=== PATIENT | male | born 1970 | race Caucasian/White ===

== ENCOUNTER → 2021-12-21 15:02 | Outpatient (CLI) | payer BC, SELFPAY ==
[2021-12-21 19:30] LABS: Basophils # 0.1 K/mm3 (0-0.2); Basophils % 0.9 % (0.1-2.0); Eosinophils # 0.1 K/mm3 (0.0-0.4); Eosinophils % 1.3 % (0.1-12.0); Hematocrit 42.8 % (42.0-52.0); Hemoglobin 14.7 g/dL (14.1-18.0); Lymphocytes # 2.9 K/mm3 (0.7-4.5); Lymphocytes % 34.7 % (10-50); Mean Corpuscular HGB Conc 34.3 g/dL (31.8-35.4); Mean Corpuscular Hemoglobin 29.9 pg (27.0-31.2); Mean Corpuscular Volume 87.2 fl (80-94); Mean Platelet Volume 9.4 fl (7.4-10.4); Monocytes # 0.7 K/mm3 (0.1-1.0); Monocytes % 8.3 % (1.7-9.3); Neutrophils # 4.6 K/mm3 (1.8-7.8); Neutrophils % 54.7 % (37.0-80.0); Platelet Count 316 K/mm3 (142-424); Red Blood Count 4.91 M/mm3 (4.60-6.20); Red Cell Distribution Width 13.4 % (11.5-17.5); White Blood Count 8.4 K/mm3 (4.8-10.8)
[2021-12-21 19:40] LABS: Alanine Aminotransferase 38 U/L (12-78); Albumin Level 4.4 g/dl (3.5-5.0); Albumin/Globulin Ratio 1.5 (1.1-1.8); Alkaline Phosphatase 86 U/L (38-126); Anion Gap 13.4 mEq/L (5-15); Aspartate Amino Transferase 32 U/L (17-59); Bilirubin,Total 0.5 mg/dl (0.2-1.3); Blood Urea Nitrogen 13 mg/dl (9-20); Calcium 8.9 mg/dl (8.4-10.2); Carbon Dioxide 27 mmol/L (22.0-30.0); Chloride 101 mmol/L (98-107); Chol/HDL Ratio 6.8 (1-3.5); Cholesterol 238 mg/dl (140-200); Estimated Glomerular Filt Rate 78 ml/min (>60); GFR (African American) 95 ML/MIN (>60); Glucose 86 mg/dl (74-100); HDL Cholesterol 35 mg/dl (40-60); Potassium 4.4 mmoL/L (3.5-5.1); Sodium 137 mmol/L (136-145); Total Protein,Serum 7.4 g/dl (6.3-8.2); Triglycerides 200 mg/dl (30-150); VLDL Cholesterol 40 mg/dL (0-40)
[2021-12-21 19:52] LABS: Direct LDL Cholesterol 128.01 mg/dL (100-129)
[2021-12-21 19:58] LABS: 25-OH Vitamin D, Total 18.7 ng/mL (30-100)
[2021-12-21 20:11] LABS: Prostate Specific Ag Screen 0.5 ng/ml (0.0-4.0); Thyroid Stimulating Hormone 0.94 uIU/mL (0.465-4.68)
== END ==
PROVIDERS: Visit Provider Family Medicine
DX: I10 Essential (primary) hypertension (principal); E55.9 Vitamin D deficiency, unspecified; Z12.5 Encounter for screening for malignant neoplasm of prostate
CPT/HCPCS: 80053; 80061; 82306; 84443; 85025; G0103

== ENCOUNTER 2024-12-27 10:52 | Outpatient (CLI) | payer BC, SELFPAY ==
[2024-12-27 17:41] LABS: Basophils # 0.1 K/mm3 (0-0.2); Basophils % 0.6 % (0.1-2.0); Eosinophils # 0.2 K/mm3 (0.0-0.4); Eosinophils % 1.8 % (0.1-12.0); Hematocrit 42.6 % (42.0-52.0); Hemoglobin 14.7 g/dL (14.1-18.0); Lymphocytes # 3.2 K/mm3 (0.7-4.5); Lymphocytes % 30.4 % (10-50); Mean Corpuscular HGB Conc 34.5 g/dL (31.8-35.4); Mean Corpuscular Hemoglobin 28.9 pg (27.0-31.2); Mean Corpuscular Volume 83.9 fl (80-94); Mean Platelet Volume 11.5 fl (7.4-10.4); Monocytes % 9.9 % (1.7-9.3); Neutrophils # 5.9 K/mm3 (1.8-7.8); Neutrophils % 56.7 % (37.0-80.0); Nucleated Red Blood Cells # 0 10^3/uL; Nucleated Red Blood Cells % 0 %; Platelet Count 279 K/mm3 (142-424); Red Blood Count 5.08 M/mm3 (4.60-6.20); Red Cell Distribution Width 12.5 % (11.5-17.5); Red Cell Distribution Width-SD 37.5 fL; White Blood Count 10.5 K/mm3 (4.8-10.8)
[2024-12-27 18:44] LABS: Hemoglobin A1C 5.6 % (4.0-6.0)
[2024-12-27 18:58] LABS: Alanine Aminotransferase 70 U/L (12-78); Albumin Level 4.3 g/dl (3.5-5.0); Albumin/Globulin Ratio 1.2 (1.1-1.8); Alkaline Phosphatase 86 U/L (38-126); Anion Gap 14.7 mEq/L (5-15); Aspartate Amino Transferase 63 U/L (17-59); Bilirubin,Total 0.8 mg/dl (0.2-1.3); Blood Urea Nitrogen 10 mg/dl (9-20); Carbon Dioxide 27 mmol/L (22.0-30.0); Chloride 99 mmol/L (98-107); Chol/HDL Ratio 6.6 (1-3.5); Cholesterol 230 mg/dl (140-200); Estimated Glomerular Filt Rate 100 ml/min (>60); GFR (African American) 121 ML/MIN (>60); Globulin 3.7 g/dL (1.3-3.2); Glucose 115 mg/dl (74-100); HDL Cholesterol 35 mg/dl (40-60); Potassium 3.7 mmoL/L (3.5-5.1); Sodium 137 mmol/L (136-145); Triglycerides 294 mg/dl (30-150); VLDL Cholesterol 59 mg/dL (0-40)
[2024-12-27 19:09] LABS: Direct LDL Cholesterol 119.92 mg/dL (100-129)
[2024-12-27 19:31] LABS: Prostate Specific Ag Screen 0.5 ng/ml (0.0-4.0); Thyroid Stimulating Hormone 0.66 uIU/mL (0.465-4.68)
--- OUTSIDE RECORDS SUMMARY | 2024-12-30 10:55 | XMS_ITS | Data Portability ---
Author Organization [facility] & [place] [facility] ADMIN Address [address] [place] [address] Assessment No assessment recorded. Plan of Treatment Reminders Order Date Submit Date Provider Last Modified By Organization Details Last Modified Time Details Appointments None recorded. Lab None recorded. Referral None recorded. Procedures None recorded. Surgeries None recorded. Imaging None recorded. Medication Orders ciprofloxac in 0.3 % eye drops 2023 024 [facility] [address] [place], [place], [id number], 4 17:57:44 dexamethaso ne sodium phosphate 0.1 % eye drops 2023 024 [facility], [address] [place] [address] , [place], [place], [id number], 4 17:57:45 Patient TargetsNo targets recorded. Patient InstructionsNo instructions recorded. Reason for Referral None Reported. Results Created Date Observation Date Name Description Value Unit Range Abnormal Flag Note LastModifiedBy Organization Detail LastModifiedTime 08/31/2008/31/2023 GLUCO SE POINT OF CARE note See Note Order ing Provi cara: Kamar Hazel Bobby DO Not Available [address] [place], [address], 08/31/2023 07:35:10 08/31/20 23 08/31/2023 GLUCO SE POINT OF CARE glucose point of care 108 mg/dL 70-99 high Not Available [address] [place], [address], 08/31/2023 07:35:10 08/31/20 23 08/31/2023 GLUCO SE POINT OF CARE performing lab see note [facility] [address] [place] [address] Not Available [facility] [address] [place], [address], 08/31/2023 07:35:10 08/08/20 23 08/08/2023 elect romyo gram + nerve condu ction study No observ ation record ed. [email or web address] Not Available 2022 14:57:33 Result Notes None recorded. Problems Name Problem SNOMED Code Status Onset Date Resolution Date Notes Provider Name and Address Organization Details Recorded Time Cirrhosis of liver Active 2021 blank bishopemani jane, [place] - [facility] - [place] & [place] 2 12:40:42 Pyrexia of unknown origin 4946553 Active 2021 blank ednaemani jane, [place] - [facility] - [place] & [place] 2 12:43:33 Acute otitis externa 15902360 Active 2023 TAISHA Bonner [facility], [place], [address], [place] - [facility] - [place] & [place] 4 14:22:03 Acute otitis externa 85156971 Active 2023 TAISHA Bonner [address] [facility], [place], [address], [place] - [facility] - [place] & [place] 4 14:22:17 Otalgia of right ear 4868881497 Active 2023 TAISHA Bonner [address] [facility], [place], [address], [place] - [facility] - [place] & [place] 4 15:55:49 Sensorineural hearing loss of bilateral ears 643031569 Active 2023 TASIHA Bonner [address] [facility], [place], [address], [facility] & [place] 15:56:05 Problem Notes None recorded. Procedures Surgical History Date Name Laterality Status Provider Name and Address Organization Details Recorded Time 10/04/19 24 Binocular Microscopic Exam completed Florencia TAISHA Holley [address] [facility],[address], [place], [address], [facility] - [facility] - [place] & [place] 10/04/2023 15:55:24 09/18/19 22 Cholecystectomy completed [facility] - [facility] & [place] 07/24/2023 10:32:44 09/18/19 22 Colonoscopy completed [facility] - [facility] & [place] 07/24/2023 10:32:44 Imaging Results Imaging Date Name Status LastModified by Organization Details LastModified Time 08/08/2023 electromyogram + nerve conduction study completed Information not available 08/08/2023 14:57:33 Procedure Notes None recorded. Medical Equipment None Reported. Allergies No known drug allergies Medications Name Sig Start Date Stop Date Status Note LastModified by Organization Details LastModified Time losartan 50 mg tablet TAKE ONE TABLET BY MOUTH DAILY 07/24 completed Not Available Not Available Not Available hydrocodone 5 mg-acetamino phen 325 mg tablet TAKE ONE TABLET BY MOUTH EVERY 4 HOURS NEEDED FOR PAIN active Not Available Not Available No t Available Claritin 10 mg tablet Take 1 tablet every day by oral route. active Not Available Not Available No t Available dexamethason e sodium phosphate 0.1 % eye drops Instill THREE drops TO THE right ear twice daily FOR 10 DAYS active Not Available Not Available No t Available losartan 100 mg-hydrochlo rothiazide 25 mg tablet TAKE ONE TABLET BY MOUTH DAILY active Not Available Not Available No t Available ciprofloxaci n 0.3 % eye drops Instill THREE drops TO THE right ear twice daily FOR 10 DAYS active Not Available Not Available No t Available losartan 100 mg-hydrochlo rothiazide 12.5 mg tablet TAKE ONE TABLET BY MOUTH DAILY 07/24 completed Not Available Not Available Not Available Claritin 07/24 completed Not Available Not Available Not Available nebivolol 10 mg tablet take ONE tablet by MOUTH ONCE daily 07/24 completed Not Available Not Available Not Available Prilosec 10 mg oral suspension,d elayed release Take 1 packet every day by oral route. active Not Available Not Available No t Available Suprep Bowel Prep Kit 17.5 gram-3.13 gram-1.6 gram oral solution 07/24 completed Not Available Not Available Not Available Vitals Date Recorded Body height Body mass index (BMI) Body weight Heart rate Systolic blood pressure Diastolic blood pressure Provider Name and Address Organization Details Last Updated DateTime 4 182.88 cm 46.8 kg/m2 500112. 37 g 86 /min 158 mm[Hg] 91 mm[Hg] Gage Valentine [facility] & [place] 4 14:05:23 Social History Question Answer Notes LastModified by Organizat ion Details LastModified Time Do You Have An Advance Directive? No Information not available 07/24/2023 What Is Your Level Of Alcohol Consumption? None Information not available 07/24/2023 Are You Blind Or Do You Have Difficulty Seeing? No Information not available 07/24/2023 What Was The Date Of Your Most Recent Tobacco Screening? 07/24/2023 Information not available 07/24/2023 Are You Passively Exposed To Smoke? No Information not available 07/24/2023 Do You Or Have You Ever Used Smokeless Tobacco? Current Snuff User Information not available 07/24/2023 Sex: Unknown Functional Status Question Answer Note LastModified by Organization D etails LastModified Time What is your exercise level? Moderate Information not available 07/24/2023 Mental Status None recorded. Family History Nothing Reported. Medical History Condition Response Gout Y Hypertension Y GI Problems Y Ear or Hearing Problems Y Past Encounters Encounter ID Performer Location Encounter Start Date Encounter Closed Date Diagnosis/Indication Diagnosis SNOMED-CT Code Diagnosis ICD10 Code Diagnosis Note [id number] DO MARGARITA MANDUJANO [address] [address] 07/24/2023 10:27:53 07/24/2023 11:10:36 Numbness and tingling sensation of skin 3802626553 02 R20.2 Bilateral carpal tunnel syndrome 0094088193 4639931 G56.03 [id number] DO MARGARITA MANDUJANO [facility] [address] [place] [address] 08/14/2023 13:59:45 08/14/2023 14:22:51 Bilateral carpal tunnel syndrome 8274811220 5946114 G56.03 Ulnar nerv e entrapment at elbow 322876318 G56.23 Numbness a nd tingling sensation of skin 0150247544 02 R20.2 [id number] TAISHA Bonner [facility] MARES [address] [place] [address] 10/04/2023 13:58:07 10/04/2023 14:24:05 Acute otitis externa 57081233 H60.501 Advised patient to use drops as prescribed . Wick placed in right eac today under otomicrosc opy and ciprodex drops instilled. Patient tolerated well. Advised patient his wick needs to come out by Monday morning. Continue drop use following wick removal. Follow up in 10 days. Discussed symptoms that should prompt patient to call the office prior to follow up. Otalgia of right ear 433 7186006 H92.01 We will ensure this resolves with resolution of OE. Sensorineu ral hearing loss of bilateral ears 380973025 H90.3 Advised patient to hold off on wearing hearing aid in the right ear until follow up visit. Health Concerns Section Related Observation LastModified by Organization Detai ls LastModified Time None Recorded Concern Status LastModified by Organization Details LastModified Time None Recorded Advance Directives Directive N: Payers Encounter Date Sequence Insurance Name Policy Number Policy Prado Covered Member ID Prado Member ID Guarantor Name 07/24/2023 1 [place] [id number] Virgilio Gonzalez [id number] Virgilio Gonzalez 08/14/2023 1 [place] [id number] Virgilio Gonzalez [id number] Virgilio Gonzalez 10/04/2023 1 [place] [id number] Virgilio Gonzalez [id number] Virgilio Gonzalez Notes Date Note Type Note Provider Name and Address Organization Details Recorded Time 07/24/2023 text/html Pt is here for r t thumb, index and middle fingers numbness and tingling. He reports onset at about one month ago. He has not had an EMG-E3SF KAMAR FUENTES DO [address] [place] [address] Drive,[address], [place], [address], [facility] & [place] 07/24/2023 13:14:40 08/14/2023 text/html EMG [email or web address] bilateral em. 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 2. Moderate to severe sensorimotor axonal and demyelinating neuropathy affecting the left median nerve at or about the wrist. 3. Mild motor primarily demyelinating neuropathies affecting the bilateral ulnar nerves at or about the elbows.E3AP KAMAR FUENTES, [address] [facility],[address], [place], [address], [facility] & [place] 08/15/2023 08:29:40 10/04/2023 text/html Patient is here today for evaluation of right ear pain. He reports the pain started a few days ago. He reports the pain radiates down into his neck. He has been taking ibuprofen for pain control. He denies any issues with the left ear. He reports he has been unable to wear his hearing aid due to the pain. He denies noting any drainage. TAISHA Bonner [address] [place] [address] Drive,[address], [place], [address], [facility] & [place] 10/04/2023 15:58:07
[2024-12-31 12:42] LABS: Testosterone,Total 324 ng/dL (264-916)
== END 2024-12-27 23:59 | disposition home or self-care (01) ==
LOC: LAB.DROPOF 12-30 10:52
PROVIDERS: PCP Family Medicine; Visit Provider Family Medicine
DX: Z12.5 Encounter for screening for malignant neoplasm of prostate (principal); I10 Essential (primary) hypertension; Z79.899 Other long term (current) drug therapy
CPT/HCPCS: 80053; 80061; 83036; 84403; 84443; 85025; G0103

== ENCOUNTER → 2025-01-22 06:59 | Outpatient (CLI) | payer BC, SELFPAY ==
--- OUTSIDE RECORDS SUMMARY | 2025-01-22 07:00 | XMS_ITS | Data Portability ---
Author Organization [facility] & [place] [facility] AD[facility] Address [address] [place] [phone] Assessment No assessment recorded. Plan of Treatment Reminders Order Date Submit Date Provider Last Modified By Organization Details Last Modified Time Details Appointments None recorded. Lab None recorded. Referral None recorded. Procedures None recorded. Surgeries None recorded. Imaging None recorded. Medication Orders ciprofloxac in 0.3 % eye drops 2023 024 [facility] [address] [place], [place], [id number], 4 17:57:44 dexamethaso ne sodium phosphate 0.1 % eye drops 2023 024 [facility], [address] [place] [address] , [place], [place], [id number], 4 17:57:45 Patient TargetsNo targets recorded. Patient InstructionsNo instructions recorded. Reason for Referral None Reported. Results Created Date Observation Date Name Description Value Unit Range Abnormal Flag Note LastModifiedBy Organization Detail LastModifiedTime 08/31/2008/31/2023 GLUCO SE POINT OF CARE note See Note Order ing Provi cara: Kamar Hazel Bobby DO Not Available [address] [place], [address], 08/31/2023 07:35:10 08/31/20 23 08/31/2023 GLUCO SE POINT OF CARE glucose point of care 108 mg/dL 70-99 high Not Available [address] [place], [address], 08/31/2023 07:35:10 08/31/20 23 08/31/2023 GLUCO SE POINT OF CARE performing lab see note [facility] [address] [place] [address] Not Available [facility] [address] [place], [address], 08/31/2023 07:35:10 08/08/20 23 08/08/2023 elect romyo gram + nerve condu ction study No observ ation record ed. [email or web address] Not Available 2022 14:57:33 Result Notes None recorded. Problems Name Problem SNOMED Code Status Onset Date Resolution Date Notes Provider Name and Address Organization Details Recorded Time Cirrhosis of liver Active 2021 blank bishopemani jane, [place] - [facility] - [place] & [place] 2 12:40:42 Pyrexia of unknown origin 4899285 Active 2021 blank ednaemani jane, [place] - [facility] - [place] & [place] 2 12:43:33 Acute otitis externa 55280311 Active 2023 TAISHA Bonner [facility] [employer] [facility],[address], [place], [address], [place] - [facility] - [place] & [place] 4 14:22:03 Acute otitis externa 89302484 Active 2023 TAISHA Bonner [address] [employer] [facility],[address], [place], [address], [place] [facility] - [place] & [place] 4 14:22:17 Otalgia of right ear 8541166653 Active 2023 TAISHA Bonner [address] [employer] [facility],[address], [place], [address], [place] - [facility] - [place] & [place] 4 15:55:49 Sensorineural hearing loss of bilateral ears 307052490 Active 2023 TAISHA Bonner [address] [facility],[address], [place], [address], [facility] & [place] 15:56:05 Problem Notes None recorded. Procedures Surgical History Date Name Laterality Status Provider Name and Address Organization Details Recorded Time 10/04/19 24 Binocular Microscopic Exam completed Florencia TAISHA Holley [address] [facility],[address], [place], [address], [facility] - [facility] - [place] & [place] 10/04/2023 15:55:24 09/18/19 22 Cholecystectomy completed [facility] - [facility] & [place] 07/24/2023 10:32:44 09/18/19 22 Colonoscopy completed [facility] - [facility] & [place] 07/24/2023 10:32:44 Imaging Results Imaging Date Name Status LastModified by Organization Details LastModified Time 08/08/2023 electromyogram + nerve conduction study completed [email or web address] Information not available 08/08/2023 14:57:33 Procedure Notes [...] Updated DateTime 4 182.88 cm 46.8 kg/m2 083344. 37 g 86 /min 158 mm[Hg] 91 mm[Hg] [facility]age [facility] & [place] 4 14:05:23 Social History Question Answer Notes [...] SNOMED-CT Code Diagnosis ICD10 Code Diagnosis Note [id number] DO MARGARITA MANDUJANO [address] [address] 07/24/2023 10:27:53 07/24/2023 11:10:36 Numbness and tingling sensation of skin 6100368909 02 R20.2 Bilateral carpal tunnel syndrome 9577008171 2467824 G56.03 [id number] DO MARGARITA MANDUJANO [facility] [address] [place] [address] 08/14/2023 13:59:45 08/14/2023 14:22:51 Bilateral carpal tunnel syndrome 2634153254 0543837 G56.03 Ulnar nerv e entrapment at elbow 172345985 G56.23 Numbness a nd tingling sensation of skin 5718513289 02 R20.2 [id number] TAISHA Bonner [facility] [place] [phone] 10/04/2023 13:58:07 10/04/2023 14:24:05 Acute otitis externa 40392738 H60.501 Advised patient to use drops as [...] to follow up. Otalgia of right ear 158 1924554 H92.01 We will ensure this resolves with resolution of OE. Sensorineu ral hearing loss of bilateral ears 982800919 H90.3 Advised patient to hold off on wearing hearing aid in the right ear until follow up visit. Health Concerns Section Related Observation LastModified by Organization Detai ls LastModified Time None Recorded Concern Status LastModified by Organization Details LastModified Time None Recorded Advance Directives Directive N: Payers Insurance Date Sequence Insurance Name Policy Number Policy Prado Covered Member ID Prado Member ID Guarantor Name 04/06/2024 1 [place] [place] [id number] Virgilio Gonzalez [id number] Virgilio Gonzalez 07/24/2023 1 [place] [employer] BLUE ACCESS ([place]O) [id number] Blank Gonzalez [id number] Virgilio Gonzalez Notes Date Note Type Note Provider Name and Address Organization Details Recorded Time 07/24/2023 text/html Pt is here for r t thumb, index and middle fingers numbness and tingling. He reports onset at about one month ago. He has not had an EMG-E3SF KAMAR FUENTES DO [address] [place] [address],[address], [place], [address], [facility] - [facility] & [place] 07/24/2023 13:14:40 08/14/2023 text/html EMG [email or web address] bilateral em. 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 2. Moderate to severe sensorimotor axonal and demyelinating neuropathy affecting the left median nerve at or about the wrist. 3. Mild motor primarily demyelinating neuropathies affecting the bilateral ulnar nerves at or about the elbows.E3AP KAMAR FUENTES DO [address] [place] [address],[address], [place], [address], [facility] & [place] 08/15/2023 08:29:40 10/04/2023 text/html Patient is here [...] He denies noting any drainage. TAISHA Bonner [address] [place] [address],[address], [place], [address], [facility] - [facility]NT [facility] & [place] 10/04/2023 15:58:07
== END ==
LOC: SL 06:59
PROVIDERS: PCP Family Medicine; Visit Provider Family Medicine
DX: R06.83 Snoring (principal); R53.83 Other fatigue; E66.01 Morbid (severe) obesity due to excess calories; Z68.42 Body mass index [BMI] 45.0-49.9, adult
CPT/HCPCS: G0399

== ENCOUNTER 2025-07-14 16:40 | Outpatient (CLI) | payer BC, SELFPAY ==
[2025-07-14 20:42] LABS: Hematocrit 41.9 % (42.0-52.0); Hemoglobin 14.6 g/dL (14.1-18.0); Immature Granulocytes % 0.7 %; Mean Corpuscular HGB Conc 34.8 g/dL (31.8-35.4); Mean Corpuscular Hemoglobin 29.6 pg (27.0-31.2); Mean Corpuscular Volume 85.0 fl (80-94); Nucleated Red Blood Cells % 0 %; Platelet Count 269 K/mm3 (142-424); Red Blood Count 4.93 M/mm3 (4.60-6.20); Red Cell Distribution Width-SD 37.7 fL; White Blood Count 13.4 K/mm3 (4.8-10.8)
[2025-07-15 04:43] LABS: Alanine Aminotransferase 64 U/L (12-78); Albumin Level 3.7 g/dl (3.5-5.0); Albumin/Globulin Ratio 1.0 (1.1-1.8); Alkaline Phosphatase 97 U/L (38-126); Anion Gap 15.8 mEq/L (5-15); Aspartate Amino Transferase 47 U/L (17-59); Bilirubin,Total 0.7 mg/dl (0.2-1.3); Blood Urea Nitrogen 11 mg/dl (9-20); Calcium 9.2 mg/dl (8.4-10.2); Carbon Dioxide 22 mmol/L (22.0-30.0); Chloride 99 mmol/L (98-107); Creatinine,Serum 1.00 mg/dl (0.66-1.25); Estimated Glomerular Filt Rate 77 ml/min (>60); GFR (African American) 93 ML/MIN (>60); Globulin 3.8 g/dL (1.3-3.2); Glucose 118 mg/dl (74-100); Potassium 3.8 mmoL/L (3.5-5.1); Sodium 133 mmol/L (136-145); Total Protein,Serum 7.5 g/dl (6.3-8.2)
[2025-07-15 05:08] LABS: Thyroid Stimulating Hormone 1.30 uIU/mL (0.465-4.68)
[2025-07-15 07:32] LABS: Hepatitis C Ab Qual. W/ RFX NEGATIVE (Negative)
--- OUTSIDE RECORDS SUMMARY | 2025-07-15 13:17 | XMS_ITS | Data Portability ---
Author Organization [place] - [facility] ADMIN Address [address] [place] [address] Care Team Providers Care Coil Placer Name Role Phone GEN BOYCE Primary Care Provider [phone] Assessment No assessment recorded. Plan of Treatment Reminders Order Date Submit Date Provider Last Modified By Organization Details Last Modified Time Details Appointments INJ ONLY 10 2024 08:15A M KAMAR FUENTES, DO Not available Not available Not available Lab None recorded. Referral None recorded. Procedures None recorded. Surgeries None recorded. Imaging XR, knee 2024 025 [email or web address] [facility], [address] [place] [address] , [place], [address], 03/06/2025 06:55:54 Medication Orders triamcino lone acetonide (PF) 40 mg/mL intraocul ar suspensio n 2024 Rebecca Healy [facility] Shi, [address] [place] [address] [place], [id number], 06/25/2025 15:55:24 bupivacai ne HCl 0.5 % (5 mg/mL) injection solution 2024 Rebecca Osullivan, [address] [place] [address] Dr [place], [id number], 06/25/2025 15:55:24 Kenalog 10 mg/mL suspensio n for injection 2024 025 [email or web address] Not available 03/06/2025 06:55:54 bupivacai ne HCl 0.5 % (5 mg/mL) injection solution 2024 025 [email or web address] Not available 03/06/2025 06:55:54 ciproflox acin 0.3 % eye drops [address] [facility], [address] [place] [address] [place], [id number], 10/04/2023 17:57:44 dexametha sone sodium phosphate 0.1 % eye drops 2023 0[facility], [address] [place] [address] [place], [id number], 10/04/2023 17:57:45 Patient TargetsNo targets recorded. Patient InstructionsNo instructions recorded. Reason for Referral None Reported. Results Created Date Observation Date Name Description Value Unit Range Abnormal Flag Note LastModifiedBy Organization Detail LastModifiedTime 08/31/20 23 08/31/2023 GLUCO SE POINT OF CARE note See Note Order ing Provi cara: Kamar Fuentes DO Not Available [address] [place], [address], 08/31/2023 07:35:10 08/31/20 23 08/31/2023 GLUCO SE POINT OF CARE glucose point of care 108 mg/dL 70-99 high Not Available [address] [place], [address], 08/31/2023 07:35:10 08/31/20 23 08/31/2023 GLUCO SE POINT OF CARE performing lab see note [facility] [address] [place] [address] [place] [address] Not Available [address] [place], [address], 08/31/2023 07:35:10 08/08/20 23 08/08/2023 elect romyo gram + nerve condu ction study No observ ation record ed. [email or web address] Not Available 2022 14:57:33 03/05/20 25 XR, knee No observ ation record ed. MARIAH Watson [facility] [address] [facility] , [place], [address], 03/05/2025 14:37:29 06/12/20 25 06/12/2025 MRI, knee, w/o contr ast [facility] Name: VIRGILIO LINDO [address] [employer] Phys: [place] [address] : 1969 Age: 55 Sex: M Acct: [id number] Loc: G.MRI PHONE #: Exam Date: 2024 Status : REG CLI FAX #: Rad# [id number] Unit# [id number] Admit Date: 2024 EXAMS: CPT CODE: [id number] MRI KNEE RIGHT W/O CONT 08450 EXAMIN ATION: MR KNEE WITHOU T IV CONTRA ST RIGHT INDICA TION: POSITI VE MCMURR AY TEST RT KNEE . Medial and latera l right knee pain. Fall Januar y 24. TECHNI QUE: Multip lanar multis equenc e MRI of the right knee. Unless specif ied, no imagin g follow -up is recomm ended for incide ntal findin gs. COMPAR ARTHUR: No prior study was submit rikki for compar arthur. FINDIN GS: Mild joint effusi on. Surfac e irregu larity of the medial patell ar cartil age withou t underl sonia marrow signal change s compat ible with grade II chondr omalac ia. The medial and latera l patell ar retina cula appear intact . The medial and latera l tendon s appear intact . No poplit eal fossa mass. The extens or mechan ism appear s intact . The anteri or and base filler operator ior crucia te ligame nts appear intact . Horizo ntal tear of the base filler operator ior horn of the medial menisc us with tibial articu lar surfac e extent . Extrus ion of the body segmen t of the medial menisc us. Appear ance of interp ositio n of fluid signal betwee n the body of the medial menisc us and the medial collat eral ligame nt, concer alex for menisc ocapsu lar separa tion. No latera l menisc al tear was identi fied. The medial and latera l collat eral ligame nts appear intact . The poplit eus tendon and poplit eofibu lar ligame nt appear intact . The condyl ar cartil ages appear intact . No eviden ce for a marrow replac ing proces s, bone contus ion or fractu re. Nonspe cific subcut aneous edema within the prepat ellar region extend ing into the prepat ellar region may repres ent superf icial soft PAGE 1 Signed Report (FERMIN NUED) [facility] Name: VIRGILIO LINDO [employer] Phys: Dominique Fu[place] [address] : 1969 Age: 55 Sex: M Acct: [id number] Loc: G.MRI PHONE #: Exam Date: 2024 Status : REG CLI FAX #: Rad# [id number] Unit# [id number] Admit Date: 2024 EXAMS: CPT CODE: [id number] MRI KNEE RIGHT W/O CONT 98289 tissue contus ion, cellul itis or bursit is. IMPRES JB: Abnorm al examin ation, with findin gs as above. Electr onical ly signed by: Hannah Grimes DO 2024 01:50 PM EDT RP Workst ation: [id number] Electr onical ly Signed by HANNAH GRIMES DO on 2024 at 1212 Report ed and signed by: Justin GRIMES DO CC: Kamar Fuentes DO; Gen Boyce MD Dictat ed Date/T brodie: 2024 (1212) Techno logist : NANCY ESCUDERO ; GREG Davis Transc ribed Date/T brodie: 2024 (1212) Transc riptio nist: DR.HAL Joseph Signat ure Date/T brodie: 2024 (1212) Printe d Date/T brodie: 2024 (2191) BATCH NO: N/A PAGE 2 Signed Report CC'ed Logic: Orderi ng Provid er: ALFREDO SHEPARD Attend ing Provid er: ALFREDO SHEPARD Referr ing Provid er: ALFREDO SHEPARD Consul ting Provid er: MEREDITH MAHER [email or web address], [address], 06/12/2025 14:40:10 06/25/20 25 XR, knee No observ ation record ed. Not Available 2024 13:22:36 Result Notes Documentation Provider Name and Address Organization Details Recorded Time Mri, Knee, W/o Contrast : [facility] Name: VIRGILIO LINDO [address] [place] [address] Phys: [place] [address] : 1970 Age: 55 Sex: M Acct: [id number] Loc: G.MRI PHONE #: Exam Date: 06/12/2025 Status: REG CLI FAX #: Rad# [id number] Unit# [id number] Admit Date: 06/12/2025 EXAMS: CPT CODE: [id number] MRI KNEE RIGHT W/O CONT 28503 EXAMINATION: MR KNEE WITHOUT IV CONTRAST RIGHT INDICATION: POSITIVE JALEN TEST RT KNEE . Medial and lateral right knee pain. Fall October 11. TECHNIQUE: Multiplanar multisequence MRI of the right knee. Unless specified, no imaging follow-up is recommended for incidental findings. COMPARISON: No prior study was submitted for comparison. FINDINGS: Mild joint effusion. Surface irregularity of the medial patellar cartilage without underlying marrow signal changes compatible with grade II chondromalacia. The medial and lateral patellar retinacula appear intact. The medial and lateral tendons appear intact. No popliteal fossa mass. The extensor mechanism appears intact. The anterior and posterior cruciate ligaments appear intact. Horizontal tear of the posterior horn of the medial meniscus with tibial articular surface extent. Extrusion of the body segment of the medial meniscus. Appearance of interposition of fluid signal between the body of the medial meniscus and the medial collateral ligament, concerning for meniscocapsular separation. No lateral meniscal tear was identified. The medial and lateral collateral ligaments appear intact. The popliteus tendon and popliteofibular ligament appear intact. The condylar cartilages appear intact. No evidence for a marrow replacing process, bone contusion or fracture. Nonspecific subcutaneous edema within the prepatellar region extending into the prepatellar region may represent superficial soft PAGE 1 Signed Report (CONTINUED) [facility] Name: VIRGILIO LINDO [facility] Phys: [place] [address] : 1970 Age: 55 Sex: M Acct: [id number] Loc: SjMRI PHONE #: Exam Date: 06/12/2025 Status: REG CLI FAX #: Rad# [id number] Unit# [id number] Admit Date: 06/12/2025 EXAMS: CPT CODE: [id number] MRI KNEE RIGHT W/O CONT 99193 tissue contusion, cellulitis or bursitis. IMPRESSION: Abnormal examination, with findings as above. Electronically signed by: Hannah Grimes DO 06/12/2025 01:50 PM EDT at 1212 Reported and signed by: HANNAH GRIMES DO CC: Kamar Fuentes DO; Gen Boyce MD Dictated Date/Time: 06/12/2025 (1212) Technologist: NANCY MOY Transcribed Date/Time: 06/12/2025 (1212) Isobutylene Operator Chief: Electronic Signature Date/Time: 06/12/2025 (1212) Printed Date/Time: 06/12/2025 (2225) BATCH NO: N/A PAGE 2 Signed Report CC'ed Logic: Ordering Provider: ALFREDO SHEPARD Attending Provider: ALFREDO SHEPARD Referring Provider: ALFREDO SHEPARD Consulting Provider: MEREDITH Tarango [facility] 06/12/2025 14:40:10 Problems Name Problem SNOMED Code Status Onset Date Resolution Date Notes Provider Name and Address Organization Details Recorded Time Cirrhosis of liver Active 2021 [place], [place] - [facility] - [facility] [place] 2 12:40:42 Pyrexia of unknown origin 4836944 Active 2021 blank [place], [place] - [facility] - [place] & [place] 2 12:43:33 Acute otitis externa 23684579 Active 2023 TAISHA Bonner [address] [place] [address] Drive[address], [place], [address], [place] - [facility] - [facility] & [place] 4 14:22:03 Acute otitis externa 44224362 Active 2023 TAISHA Bonner [address] [place] [address] Drive[address], [place], [address], [place] - [facility] - [facility] & [place] 4 14:22:17 Otalgia of right ear 5485702329 Active 2023 Florencia Holley NETWORK DIRECTOR [address] [place] [address] Drive[address], [place], [address], [place] - [facility] - [facility] & [place] 4 15:55:49 Sensorineural hearing loss of bilateral ears 436458121 Active 2023 TAISHA Bonner [address] [place] [address],[address], [place], [address], [place] - [facility] - [facility] & [place] 4 15:56:05 Problem Notes None recorded. Procedures Surgical History Date Name Laterality Status Provider Name and Address Organization Details Recorded Time 10/04/19 24 Binocular Microscopic Exam completed TAISHA Bonner [address] [place] [address],[address], [place], [address], [place] - [facility] - [facility] & [place] 10/04/2023 15:55:24 09/18/19 22 Cholecystectomy completed Yane Jim [place] - [facility] - [facility] & [place] 07/24/2023 10:32:44 09/18/19 22 Colonoscopy completed Yane Jim [place] - [facility] - [place] & [place] 07/24/2023 10:32:44 Imaging Results None recorded. Procedure Notes None recorded. Medical Equipment None Reported. Allergies No known drug allergies Medications Name Sig Start Date Stop Date Status Note LastModified by Organization Details LastModified Time losartan 50 mg tablet TAKE ONE TABLET BY MOUTH DAILY 07/24 completed Not Available Not Available Not Available hydrocodone 5 mg-acetamin ophen 325 mg tablet TAKE ONE TABLET BY MOUTH EVERY 4 HOURS NEEDED FOR PAIN active Not Available Not Available No t Available Claritin 10 mg tablet Take 1 tablet every day by oral route. active Not Available Not Available No t Available bupivacaine HCl 0.5 % (5 mg/mL) injection solution Take 2 mL by injection route. 2024 active Not Available Not Available Not Avai lable ropinirole 3 mg tablet TAKE ONE TABLET BY MOUTH 1-3 HOURS BEFORE bedtime active Not Available Not Available No t Available dexamethaso ne sodium phosphate 0.1 % eye drops Instill THREE drops TO THE right ear twice daily FOR 10 DAYS active Not Available Not Available No t Available losartan 100 mg-hydrochl orothiazide 25 mg tablet TAKE ONE TABLET BY MOUTH EVERY DAY active Not Available Not Available No t Available ciprofloxac in 0.3 % eye drops Instill THREE drops TO THE right ear twice daily FOR 10 DAYS active Not Available Not Available No t Available Kenalog 10 mg/mL suspension for injection Take 20 mg by injection route. 2024 active Not Available Not Available Not Avai lable amlodipine 10 mg tablet TAKE ONE TABLET BY MOUTH EVERY DAY active Not Available Not Available No t Available albuterol sulfate HFA 90 mcg/actuati on aerosol inhaler inhale 2 puffs BY MOUTH FOUR TIMES DAILY NEEDED FOR shortness of breath OR wheezing active Not Available Not Available No t Available losartan 100 mg-hydrochl orothiazide 12.5 mg tablet TAKE ONE TABLET BY MOUTH DAILY 07/24 completed Not Available Not Available Not Available Claritin 07/24 completed Not Available Not Available Not Available nebivolol 10 mg tablet take ONE tablet by MOUTH ONCE daily 07/24 completed Not Available Not Available Not Available triamcinolo ne acetonide (PF) 40 mg/mL intraocular suspension Take 1 mL by intraocul ar route. 2024 active Not Available Not Available Not Avai lable Prilosec 10 mg oral suspension, delayed release Take 1 packet every day by oral route. active Not Available Not Available No t Available Suprep Bowel Prep Kit 17.5 gram-3.13 gram-1.6 gram oral solution 07/24 completed Not Available Not Available Not Available testosteron e 20.25 mg/1.25 gram per pump act.(1.62 %) transdermal gel APPLY 2 pumps topically DAILY, apply ONE pump AMOUNT over max AREA of each upper arm AND shoulder active Not Available Not Available No t Available Vitals Date Recorded Body height Body mass index (BMI) Body weight Heart rate Systolic And Diastolic Provider Name and Address Organization Details Last Updated DateTime 10/04/2023 182.88 cm 46.8 kg/m2 118301.3 7 g 86 /min 158/91 mm[Hg] Gage Valentine [place] - [facility] & [place] 10/04/2023 14:05:23 Social History Question Answer Notes LastModified by [employer] Details LastModified Time Do You Have An Advance Directive? No Information not available 07/24/2023 Are You Blind Or Do You Have Difficulty Seeing? No Information not available 07/24/2023 What Was The Date Of Your Most Recent Tobacco Screening? 07/24/2023 Information not available 07/24/2023 Are You Passively Exposed To Smoke? No Information not available 07/24/2023 Sex: Unknown Functional Status Question Answer Note LastModified by [employer] Details LastModified Time What is your level of alcohol consumption? None Information not available 07/24/2023 Do you or have you ever used smokeless tobacco? Current snuff user Information not available 07/24/2023 What is your exercise level? Moderate Information not available 07/24/2023 Mental Status None recorded. Family History Nothing Reported. Medical History Condition Response Gout Y Hypertension Y Ear or Hearing Problems Y GI Problems Y Immunizations Vaccine Type Date Status Note Provider Nam e and Address Organization Details Recorded Time influenza, unspecified formulation 4 completed Not Available [facility] 06/25/2025 13:10:26 Influenza, split virus, quadrivalent, preservative 6 completed Not Available [facility] 06/25/2025 13:10:26 COVID-19 vaccine, vector-nr, rS-Ad26, PF, 0.5 mL 1 completed Not Available [facility] 06/25/2025 13:10:26 Influenza, recombinant, quadrivalent, PF 2 completed Not Available [facility] 06/25/2025 13:10:26 Influenza, recombinant, quadrivalent, PF 2 completed Not Available [facility] 06/25/2025 13:10:26 Influenza, split virus, quadrivalent, PF 3 completed Not Available [facility] 06/25/2025 13:10:26 Influenza, split virus, quadrivalent, PF 4 completed Not Available [facility] 06/25/2025 13:10:26 Past Encounters Encounter ID Performer Location Encounter Start Date Encounter Closed Date Diagnosis/Indication Diagnosis SNOMED-CT Code Diagnosis ICD10 Code Diagnosis IMO Codes Diagnosis Note [id number] [facility] [address] 07/24/2023 10:27:53 07/24/2023 11:10:36 Numbness and tingling sensation of skin 0108367078 02 R20.2 Bilateral carpal tunnel syndrome 0015871991 5570216 G56.03 [id number] DO MARGARITA MANDUJANO [address] [address] 08/14/2023 13:59:45 08/14/2023 14:22:51 Bilateral carpal tunnel syndrome 5983830955 4465832 G56.03 Ulnar nerv e entrapment at elbow 282942716 G56.23 Numbness a nd tingling sensation of skin 7985305227 02 R20.2 [id number] TAISHA Bonner [facility] [place] [address] 10/04/2023 13:58:07 10/04/2023 14:24:05 Acute otitis externa 71670388 H60.501 Advised patient to use drops as [...] to follow up. Otalgia of right ear 067 9371292 H92.01 We will ensure this resolves with resolution of OE. Sensorineu ral hearing loss of bilateral ears 604125954 H90.3 Advised patient to hold off on wearing hearing aid in the right ear until follow up visit. [id number] DO MARGARITA MANDUJANO [address] [address] 03/05/2025 14:24:02 03/05/2025 15:23:49 Pain of knee region 9921021769 M25.561 71236456 Pes anseri nus bursitis of right knee 0218462819 258296 M70.51 38850782 [id number] DO MARGARITA MANDUJANO [address] [address] 06/25/2025 13:09:05 06/25/2025 13:36:04 Tear of medial meniscus of knee 258428965 S83.241A 37445621 Arthritis of right knee joint 2753460688 696305 M17.11 451757 Health Concerns Section Related Observation LastModified by Organization Detai ls LastModified Time None Recorded Concern Status LastModified by Organization Details LastModified Time None Recorded Advance Directives Directive N: Payers Insurance Date Sequence Insurance Name Policy Number Policy Prado Covered Member ID Prado Member ID Guarantor Name 07/15/2025 1 [place] [id number] Virgilio Lindo [id number] Virgilio Lindo 07/24/2023 1 [place] [id number] Blank Lindo [id number] Virgilio Lindo Notes Date Note Type Note Provider Name and Address Organization Details Recorded Time 07/24/2023 text/html ROS as noted in the HPI Pt is here for rt thumb, index and middle fingers numbness and tingling. He reports onset at about one month ago. He has not had an [id number] [place]UENTES DO [address] [place] [address] Drive,[address], [place], [address], [facility] & [place] 07/24/2023 13:14:40 08/14/2023 text/html ROS as noted in the HPI EMG [id number] bilateral em. 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 2. Moderate to severe sensorimotor axonal and demyelinating neuropathy affecting the left median nerve at or about the wrist. 3. Mild motor primarily demyelinating neuropathies affecting the bilateral ulnar nerves at or about the elbows.[id number] KAMAR FUENTES DO [address] [place] [address],[address], [place], [address], [facility] & [place] 08/15/2023 08:29:40 10/04/2023 text/html Patient is here [...] He denies noting any drainage. TAISHA Bonner [address] [place] [address],[address], [place], [address], [facility] & [place] 10/04/2023 15:58:07 03/05/2025 text/html ROS as noted in the HPI 55 year old male here today for right knee injury from September 2024, fell onto right knee. He has medial knee pain, really bothers him at night. He cannot walk long distances. He takes ibuprofen as needed. X-rays of right knee taken in office today. KAMAR FUENTES DO [address], [place], [address], [facility] & [place] 03/07/2025 13:08:35 06/25/2025 text/html ROS as noted in the HPI Pt is here for his MRI results-Mild joint effusion.Surface irregularity of the medial patellar cartilage withoutunderlying marrow signal changes compatible with grade IIchondromalacia. The medial and lateral patellar retinacula appearintact.The medial and lateral tendons appear intact. No popliteal fossamass.The extensor mechanism appears intact.The anterior and posterior cruciate ligaments appear intact.Horizontal tear of the posterior horn of the medial meniscus withtibial articular surface extent. Extrusion of the body segment of themedial meniscus. Appearance of interposition of fluid signal betweenthe body of the medial meniscus and the medial collateral ligament,concerning for meniscocapsular separation. No lateral meniscal tearwas identified.The medial and lateral collateral ligaments appear intact.The popliteus tendon and popliteofibular ligament appear intact.The condylar cartilages appear intact.No evidence for a marrow replacing process, bone contusion orfracture.Nonspecific subcutaneous edema within the prepatellar regionextending into the prepatellar region may represent superficial soft KAMARSusan FUENTES DO [address] [facility],[address], [place], [address], [place] - [facility] - [place] & [place] 06/27/2025 07:42:01
--- OUTSIDE RECORDS SUMMARY | 2025-07-15 13:17 | XMS_ITS | Referral Summary ---
Author Organization [employer] ([place], [place], [place], [place]) Address [address] [place] [address] Care Team Providers Care Criminal Attorney Name Role Phone Gen Boyce MD Primary Care Provider Allergies No known active allergies Medications losartan-hydroc hlorothiazide (HYZAAR) 100-12.5 mg per tablet Take 1 tablet by mouth daily. Active omeprazole (PriLOSEC) 20 MG capsule Take 20 mg by mouth nightly. Active albuterol (PROVENTIL) 2.5 mg /3 mL (0.083 %) nebulizer solution Take 2.5 mg by nebulization every 6 (six) hours as needed for Shortness of Breath . Active cetirizine (ZyrTEC) 10 MG tablet Take 10 mg by mouth nightly. Active Active Problems Problem Noted Date Diagnosed Date Hypertension 07/14/2022 Colon cancer 07/12/2022 Social History Tobacco Use Types Packs/Day Years Used Date Smoking Tobacco: Former Smokeless Tobacco: Current Alcohol Use Standard Drinks/Week Comments Not Currently 0 (1 standard drink = 0.6 oz pur e alcohol) Food Insecurity Answer Date Recorded Food run out past 12 months Not on file 09/19 Food did not last past 12 months Not on file 10/07/2023 Employment Answer Date Recorded Help finding and keeping a job Not on file 0 10/07/2023 Family and Community Support Answer Henok e Recorded Help with Day to Day Activities Not on file 10/07/2023 Feeling Lonely or Isolated Not on file 10/07 Educational Attainment Answer Date Vijay rded Speak language other than Cymro at home Not on file 10/07/2023 Want help with school or training Not on file 10/07/2023 Substance Use Answer Date Recorded Used prescription meds for non-medical reasons N ot on file 10/07/2023 Used illegal drugs past 12 months Not on file 10/07/2023 Sex and Gender Information Value Date Recorded Sex Assigned at Not on file Legal Sex Male 9:18 AM CDT Gender Identity Not on file Sexual Orientation Not on file Last Filed Vital Signs Vital Sign Reading Time Taken Comments Blood Pressure 153/83 07/14/2022 3:10 PM EDT Pulse 96 07/14/2022 3:10 PM EDT Temperature 37.2 C (98.96 F) 07/14/2022 3:00 PM EDT Respiratory Rate 16 07/14/2022 3:10 PM EDT Oxygen Saturation 96% 07/14/2022 3:10 PM EDT Inhaled Oxygen Concentration - - Weight 154.2 kg (340 lb) 07/12/2022 10:14 AM EDT Height 182.9 cm (6') 07/12/2022 10:14 AM EDT Body Mass Index 46.11 07/12/2022 10:14 AM EDT Plan of Treatment Not on file Insurance BLUE CROSS/BLUE SHIELD Care Teams Criminal Attorney Relationship Specialty Start Date End Date Gen Boyce MD [address] [place] [address] PCP - General Family Medicine 06/18/22
--- OUTSIDE RECORDS SUMMARY | 2025-07-15 13:17 | XMS_ITS | Patient Health Record ---
[facility] Organization [facility] Address [address] [place] [phone] Support Name Relationship Address Phone Virgilio Gonzalez Guarantor Unknown [phone] Reason For Referral No Information Medications Medication SIG (Take, Route, Frequency, Duration) Notes Start Date End Date Status Allopurinol 100 MG orally daily Active Pravastatin Sodium 20 MG orally daily Active ZyrTEC Allergy 10 MG orally daily Active Plan Of Treatment No Information Insurance Providers Payer Name Payer Address Payer Phone Subscriber Number Group Number Insured Name Patient Relationship to Insured Coverage Start Date Coverage End Date [facility] [address] [place] [address] [id number] Virgilio Gonzalez Self - patient is the insured Medical (General) History Medical History History ICD Code hyperlipidemia Gout allergies
--- OUTSIDE RECORDS SUMMARY | 2025-07-15 13:17 | XMS_ITS | Patient Health Record ---
Author Organization [facility] Address [address], [place] [id number] Support Name Relationship Address Phone Virgilio Gonzalez Guarantor Unknown [phone] Reason For Referral No Information Plan Of Treatment No Information
--- OUTSIDE RECORDS SUMMARY | 2025-07-15 13:17 | XMS_ITS | Clinical Summary ---
Author Organization [employer] ([place], [place], [place], [place]) Address [address] [place] [address] Care Team Providers Care Surface Miner Name Role Phone Gen Boyce MD Primary Care Provider [phone] Allergies No known active allergies Medications losartan-hydroc [...] Date Vijay rded Speak language other than Rwandan at home Not on file 10/07/2023 Want [...] 07/12/2022 10:14 AM EDT Plan of Treatment Health Maintenance Due Date Last Done Comments CT Colonography 1968 Colonoscopy 1968 Colorectal Cancer Screening 1968 FOBT/FIT 1968 Fit-DNA (Cologuard) 1968 Sigmoidoscopy 1968 Depression Screening (12+) 1980 HIV Screening 01/26/1983 Hepatitis C Screening 01/26/1986 Lipid Panel 01/26/2003 DTAP/TDAP/TD VACCINES (2 - Td or Tdap) 09/18/2016 Pneumococcal 50+ years (1 of 1 - PCV) 01/26/2018 Shingles Vaccine (Zoster) (1 of 2) 01/26/2018 Tobacco Cessation Counseling and Screening (12+) 07/1207/12/2022 COVID-19 VACCINE (1 - 2023- season) 2025 Influenza Vaccine (#1) 2025 Insurance BLUE CROSS/BLUE SHIELD Care Teams Surface Miner Relationship Specialty Start Date End Date Gen Boyce MD [address] [place] [address] PCP - General Family Medicine 06/18/22
--- OUTSIDE RECORDS SUMMARY | 2025-07-15 13:17 | XMS_ITS | Encounter Summary ---
Author Organization Healthcare Address [address] [place] [address] Care Team Providers Care Table Hand Name Role Phone Unavailable Primary Care Provider Unavailabl e Reason for Referral * Consultation (Routine) - Authorized Specialty Diagnoses / Procedures Referred By Contac t Referred To Contact Integrative Medicine Diagnoses Numbness Paresthesia Bilateral low back pain, unspecified chronicity, unspecified whether sciatica present Gen Boyce MD Phone: tel: fax: Referral ID Status Reason Start Date Expiration Date Visits Requested Visits Authorized [id number] Authorized Specialty Services Required 02/06/2024 08/07/2025 1 1 Encounter Details Date Type Department Care Team (Late st Contact Info) Description 02/06/2024 [facility] [address] [place] [phone] Gen Boyce MD [address] [place] [address] Numbness (Primary Dx); Paresthesia; Bilateral low back pain, unspecified chronicity, unspecified whether sciatica present Social History Tobacco Use Types Packs/Day Years Used Date Smoking Tobacco: Never Assessed Sex and Gender Information Value Date Recorded Sex Assigned at Not on file Legal Sex Male 11:23 AM EDT Gender Identity Not on file Sexual Orientation Not on file documented as of this encounter Plan of Treatment Scheduled Referrals Name Type Priority Associated Diagnoses Orde r Schedule Ambulatory referral to Integrative Medicine Outpatient Referral Routine Numbness Paresthesia Bilateral low back pain, unspecified chronicity, unspecified whether sciatica present Expected: 02/06/2024 (Approximate), Expires: 08/08/2025 documented as of this encounter Visit Diagnoses Diagnosis Numbness- Primary Disturbance of skin sensation Paresthesia Disturbance of skin sensation Bilateral low back pain, unspecified chronicity, unspecified whether sciatica present documented in this encounter
--- OUTSIDE RECORDS SUMMARY | 2025-07-15 13:17 | XMS_ITS | Continuity of Care Document ---
Author Organization [place] - [facility] - [place] & [place], [facility] Address [address] [place] [address] Care Team Providers Care Investigation Officer Name Role Phone GEN BOYCE Primary Care Provider [phone] Assessment No assessment recorded. Plan of Treatment Reminders Order Date Submit Date Provider Last Modified By Organization Details Last Modified Time Details Appointments INJ ONLY 10 2024 08:15A Paola FUENTES, DO Not available Not available Not available Lab None recorded. Referral None recorded. Procedures None recorded. Surgeries None recorded. Imaging None recorded. Medication Orders triamcino lone acetonide (PF) 40 mg/mL intraocul ar suspensio n 2024 [place] [address] [employer] [facility], [address] [place] [address] [place], [place], [id number], 06/25/2025 15:55:24 bupivacai ne HCl 0.5 % (5 mg/mL) injection solution 2024 [place] [address] [employer] [facility], [address] [place] [address] [place], [place], [id number], 06/25/2025 15:55:24 Patient TargetsNo targets recorded. Patient InstructionsNo instructions recorded. Reason for Referral None Reported. Results Created Date Observation Date Name Description Value Unit Range Abnormal Flag Note LastModifiedBy Organization Detail LastModifiedTime 06/12/2006/12/2025 MRI, knee, w/o contr ast [facility] Ce Name: VIRGILIO LINDO [address] [employer] [place] [employer] Phys: [place] [address] : 1969 Age: 55 Sex: M Acct: [id number] Loc: Daja.MRI PHONE #: Exam Date: 2024 Status : REG CLI FAX #: [phone] Rad# [id number] Unit# [id number] Admit Date: 2024 EXAMS: CPT CODE: [id number] MRI KNEE RIGHT W/O CONT [id number] EXAMIN ATION: MR KNEE WITHOU T IV [...] s intact . The anteri or and choir teacher ior crucia te ligame nts appear intact . Horizo ntal tear of the choir teacher ior horn of the medial menisc us [...] soft PAGE 1 Signed Report (FERMIN NUED) [facility] al Medica l Ce Name: VIRGILIO LINDO [facility] [address] Phys: Graciela Fuentes DO roger [facility], [place] [address] : 1969 Age: 55 Sex: M Acct: [id number] Loc: G.MRI PHONE #: Exam Date: 2024 Status : REG CLI FAX #: [phone] Rad# [id number] Unit# [id number] Admit Date: 2024 EXAMS: CPT CODE: [id number] MRI KNEE RIGHT W/O CONT [id number] tissue contus ion, cellul itis or bursit is. IMPRES JB: Abnorm al examin ation, with findin gs as above. Electr onical ly signed by: Hannah Grimes DO 2024 01:50 PM EDT RP Workst ation: [id number] Electr onical ly Signed by HANNAH GRIMES DO on 2024 at 1212 Report ed and signed by: Justin GRIMES DO CC: Kamar Fuentes DO; Gen Boyce MD Dictat ed Date/T brodie: 2024 (1212) Techno logist : NANCY MARSHALL Y Transc ribed Date/T brodie: 2024 (1212) Transc riptio nist: DR.HAL BOWERS Electr onic Signat ure Date/T brodie: 2024 (1212) Printe d Date/T brodie: 2024 (1355) BATCH NO: N/A PAGE 2 Signed Report CC'ed Logic: Orderi ng Provid er: ALFREDO SHEPARD Attend ing Provid er: ALFREDO SHEPARD Referr ing Provid er: ALFREDO SHEPARD Consul ting Provid er: MEREDITH MAHER [email or web address] [place], [address], 06/12/2025 14:40:10 06/25/20 25 XR, knee No observ ation record ed. Not Available 2024 13:22:36 Result Notes None recorded. Problems Name Problem SNOMED Code Status Onset Date Resolution Date Notes Provider Name and Address Organization Details Recorded Time Cirrhosis of liver Active 2021 blank lara, [place] - [facility] - [place] & [place] 2 12:40:42 Pyrexia of unknown origin 1845090 Active 2021 blank lara, [place] - [facility] - [place] & [place] 2 12:43:33 Acute otitis externa 84543642 Active 2023 TAISHA Bonner [address] [place] [address],My te [address] [place] [address], [phone], [place] - [facility] - [place] & [place] 4 14:22:03 Acute otitis externa 97646377 Active 2023 TAISHA Bonner [address] [place] [address],[address], [place], [phone], [facility] - [facility] - [place] & [place] 4 14:22:17 Otalgia of right ear 7115259353 Active 2023 TAISHA Bonner [address] [place] [address],[address] te [address] [place] [address], [phone], [place] - [facility] - [place] & [place] 4 15:55:49 Sensorineural hearing loss of bilateral ears 222904478 Active 2023 TAISHA Bonner [address] [place] [address],[address], [place], [address], [facility] - [facility] - [place] & [place] 4 15:56:05 Problem Notes None recorded. Procedures Surgical History Date Name Laterality Status Provider Name and Address Organization Details Recorded Time 10/04/19 24 Binocular Microscopic Exam completed TAISHA Bonner [address] [place] [address],[address], [place], [address], [place] - [facility] - [place] & [place] 10/04/2023 15:55:24 09/18/19 22 Cholecystectomy completed Yane OLMSTEAD - [facility] & [place] 07/24/2023 10:32:44 09/18/19 22 Colonoscopy completed Yane OLMSTEAD - [facility] & [place] 07/24/2023 10:32:44 Imaging Results None recorded. Procedure [...] Available Not Available No t Available Vitals None Recorded Social History Question Answer Notes LastModified by [...] Functional Status Question Answer Note LastModified by Organizat ion Details LastModified Time What is your level [...] Problems Y Ear or Hearing Problems Y Immunizations Vaccine Type Date Status Note Provider Nam e and Address Organization Details Recorded Time influenza, unspecified formulation 4 completed Not Available [facility] 06/25/2025 13:10:26 Influenza, split virus, quadrivalent, preservative 6 completed Not Available [facility] 06/25/2025 13:10:26 COVID-19 vaccine, vector-nr, rS-Ad26, PF, 0.5 mL 1 completed Not Available [facility] 06/25/2025 13:10:26 Influenza, recombinant, quadrivalent, PF 2 completed Not Available [facility] 06/25/2025 13:10:26 Influenza, recombinant, quadrivalent, PF 2 completed Not Available [facility] 06/25/2025 13:10:26 Influenza, split virus, quadrivalent, PF 3 completed Not Available [facility] 06/25/2025 13:10:26 Influenza, split virus, quadrivalent, PF 4 completed Not Available [facility] 06/25/2025 13:10:26 Past Encounters Encounter ID Performer Location Encounter Start Date Encounter Closed Date Diagnosis/Indication Diagnosis SNOMED-CT Code Diagnosis ICD10 Code Diagnosis IMO Codes Diagnosis Note [id number] DO MARGARITA MANDUJANO [address] [phone] 06/25/2025 13:09:05 06/25/2025 13:36:04 Tear of medial meniscus of knee 991749100 S83.241A 09383697 Arthritis of right knee joint 5766561284 788679 M17.11 757348 Health Concerns Section Related Observation LastModified by Organization Detai ls LastModified Time None Recorded Concern Status LastModified by Organization Details LastModified Time None Recorded Payers Encounter Date Sequence Insurance Name Policy Number Policy Prado Covered Member ID Prado Member ID Guarantor Name 06/25/2025 1 [place] [id number] Virgilio Lindo [id number] Virgilio Lindo Notes Date Note Type Note Provider Name and Address Organization Details Recorded Time 06/25/2025 text/html ROS as noted in the [...] the prepatellar region may represent superficial soft KAMAR FUENTES DO [address] [facility],[address], [place], [address], [place] - [facility] [place] 06/27/2025 07:42:01
--- OUTSIDE RECORDS SUMMARY | 2025-07-15 13:17 | XMS_ITS | Clinical Summary ---
Author Organization Healthcare Address [address] [place] [address] Care Team Providers Care Inspector Subassembly Name Role Phone Unavailable Primary Care Provider Unavailabl e Encounters Date Type Department Care Team Description 05/08/2025 10:30 AM EDT Office Visit [facility] [address] [phone] [place] Chronic bilateral low back pain with left-sided sciatica (Primary Dx); Right knee pain, unspecified chronicity 05/08/2025 Travel 04/15/2025 9:00 AM EDT Office Visit [facility] [address] [address] [place] Chronic bilateral low back pain with bilateral sciatica (Primary Dx) 04/15/2025 Travel from Last 3 Months Social History Tobacco Use Types Packs/Day Years Used Date Smoking Tobacco: Never Assessed Sex and Gender Information Value Date Recorded Sex Assigned at Not on file Legal Sex Male 11:23 AM EDT Gender Identity Not on file Sexual Orientation Not on file Plan of Treatment Health Maintenance Due Date Last Done Comments [facility]-Depression Screening 1968 [facility]-HIV Screening 1968 [facility]-Hepatitis C Screening 1968 [facility]-/Child/Adol SDOH Screenings 1968 [facility]- SDOH Screenings 01/26/1986 [facility]-Adult SDOH Screenings 01/26/1986 [facility]-DTaP,Tdap,and Td Vaccines (1 - Tdap) 01/26/1987 [facility]-Hepatitis B Vaccines (1 of 3 - 19+ 3-dose series) 01/26/1987 CT Colonography 01/26/2013 Colonoscopy 01/26/2013 FIT-DNA 01/26/2013 FIT 01/26/2013 FOBT 01/26/2013 Sigmoidoscopy 01/26/2013 [facility]-Colorectal Cancer Screening 01/26/2013 [facility]-Pneumococcal Vaccine: 50+ Years (1 of 1 - PCV) 01/26/2018 [facility]-Zoster Vaccines (1 of 2) 01/26/2018 QAC-FEVDB-52 Vaccine (2 - 2024- season) 2025 05/12/2021 [facility]-Influenza Vaccine (#1) 05/19/202507/09, 07/13/2023, 08/10/2022, Additional history exists HPV Vaccines Aged Out No longer eligi ble based on patient's age to complete this topic [facility]-HIB Vaccines Aged Out No longer e ligible based on patient's age to complete this topic [facility]-Hepatitis A Vaccines Aged Out No longer eligible based on patient's age to complete this topic [facility]-IPV Vaccines Aged Out No longer e ligible based on patient's age to complete this topic [facility]-Rotavirus Vaccines Aged Out No lo nger eligible based on patient's age to complete this topic Insurance HELDER
[2025-07-16 05:09] LABS: Hepatitis B Surface Antigen Negative (Negative)
[2025-07-16 08:32] LABS: Testosterone,Total 341 ng/dL (264-916)
== END 2025-07-14 23:59 | disposition home or self-care (01) ==
LOC: LAB.DROPOF 07-15 12:48
PROVIDERS: PCP Family Medicine; Visit Provider Family Medicine
DX: N52.9 Male erectile dysfunction, unspecified (principal); R53.83 Other fatigue; Z12.5 Encounter for screening for malignant neoplasm of prostate; Z11.59 Encounter for screening for other viral diseases; I10 Essential (primary) hypertension
CPT/HCPCS: 80053; 84403; 84443; 85025; 86803; 87340; 87389

== ENCOUNTER 2025-07-18 13:54 | Outpatient (CLI) | payer BC, SELFPAY ==
--- OUTSIDE RECORDS SUMMARY | 2025-07-18 13:58 | XMS_ITS | Encounter Summary ---
Author Organization Healthcare Address [address] [place] [address] Care Team Providers Care Foreign Broadcast Specialist Name Role Phone Unavailable Primary Care Provider Unavailabl e Reason for Referral * Consultation (Routine) - Authorized Specialty Diagnoses / Procedures Referred By Contac t Referred To Contact Integrative Medicine Diagnoses Numbness Paresthesia Bilateral low back pain, unspecified chronicity, unspecified whether sciatica present Gen Boyce MD Phone: tel: fax: Referral ID Status Reason Start Date Expiration Date Visits Requested Visits Authorized [id number] Authorized Specialty Services Required 02/06/2024 08/07/2025 1 1 Encounter Details Date Type Department Care Team (Late st Contact Info) Description 02/06/2024 [facility] [address] [place] [phone] Gen Boyce MD [address] [place] [address] Numbness (Primary Dx); Paresthesia; Bilateral low back [...]
--- OUTSIDE RECORDS SUMMARY | 2025-07-18 13:58 | XMS_ITS | Clinical Summary ---
Author Organization [employer] ([place], [place], [place], [place], [place]) Address [address] [place] [address] Care Team Providers Care Medical Billing Service Name Role Phone Gen Boyce MD Primary Care Provider [phone] Allergies No known active allergies Medications losartan-hydroc [...] Date Vijay rded Speak language other than Gambian at home Not on file 10/07/2023 Want [...] 2025 Insurance BLUE CROSS/BLUE SHIELD Care Teams Medical Billing Service Relationship Specialty Start Date End Date Gen Boyce MD [address] [place] [address] PCP - General Family Medicine 06/18/22
--- OUTSIDE RECORDS SUMMARY | 2025-07-18 13:58 | XMS_ITS | Patient Health Record ---
[facility] Address [address] [place] [phone] Support Name Relationship Address Phone Virgilio Gonzalez Guarantor Unknown [phone] Reason For Referral No Information Medications Medication [...] Insured Coverage Start Date Coverage End Date [facility] [address] [place] [address] [phone] [id number] Virgilio Gonzalez Self - patient is the insured Medical (General) History Medical History History ICD Code hyperlipidemia Gout allergies
--- OUTSIDE RECORDS SUMMARY | 2025-07-18 13:58 | XMS_ITS | Data Portability ---
Author Organization [place] - [facility] & [place] [facility] Address [address] [place] [address] Care Team Providers Care Oyster Preparer Name Role Phone DEBORAHGEN Cornell Primary Care Provider Assessment No assessment recorded. Plan of Treatment Reminders Order Date Submit Date Provider Last Modified By Organization Details Last Modified Time Details Appointments INJ ONLY 10 2024 08:15A M KAMAR FUENTES, DO Not available Not available Not available INJ ONLY 15 2024 03:45P M KAMAR FUENTES, DO Not available Not available Not available Lab None recorded. Referral None recorded. Procedures None recorded. Surgeries None recorded. Imaging XR, knee 2024 aylin [facility], [address] [place] [address] , [place], [address], 03/06/2025 06:55:54 Medication Orders triamcino lone acetonide (PF) 40 mg/mL intraocul ar suspensio n 2024 aylin [facility], [address] [place] [address] Dr [place], [place], [id number], 06/25/2025 15:55:24 bupivacai ne HCl 0.5 % (5 mg/mL) injection solution 2024 aylin [facility], [address] [place] [address] Dr [place], [id number], 06/25/2025 15:55:24 Kenalog 10 mg/mL suspensio n for injection 2024 025 Not available 03/06/2025 06:55:54 bupivacai ne HCl 0.5 % (5 mg/mL) injection solution 2024 025 Not available 03/06/2025 06:55:54 ciproflox acin 0.3 % eye drops 2023 024 [facility], [address] [place] [address] Dr [place], [place], [id number], 10/04/2023 17:57:44 dexametha sone sodium phosphate 0.1 % eye drops 2023 024 [facility], [address] [place] [address] , [place], [place], [id number], 10/04/2023 17:57:45 Patient TargetsNo targets recorded. Patient InstructionsNo instructions recorded. Reason for Referral None Reported. Results Created Date Observation Date Name Description Value Unit Range Abnormal Flag Note LastModifiedBy Organization Detail LastModifiedTime 08/31/20 23 08/31/2023 GLUCO SE POINT OF CARE note See Note Order ing Provi cara: Kamar Fuentes DO Not Available [address] , [place], [address], 08/31/2023 07:35:10 08/31/20 23 08/31/2023 GLUCO SE POINT OF CARE glucose point of care 108 mg/dL 70-99 high Not Available [address] [place], [address], 08/31/2023 07:35:10 08/31/20 23 08/31/2023 GLUCO SE POINT OF CARE performing lab see note PO - [address] [place] [address] Not Available [address] [place], [address], 08/31/2023 07:35:10 08/08/20 23 08/08/2023 elect romyo gram + nerve condu ction study No observ ation record ed. [email or web address] Not Available 2022 14:57:33 03/05/20 25 XR, knee No observ ation record ed. MARIAH Watson [facility] [address] [facility], [address], 03/05/2025 14:37:29 06/12/20 25 06/12/2025 MRI, knee, w/o contr ast [facility] Name: VIRGILIO LINDO enGreeta [employer] Phys: [place] [address] : 1969 Age: 55 Sex: M Acct: [id number] Loc: G.MRI PHONE #: [phone] Exam Date: 2024 Status : REG CLI FAX #: Rad# [id number] Unit# [id number] Admit Date: 2024 EXAMS: CPT CODE: [id number] MRI KNEE RIGHT W/O CONT 30234 EXAMIN ATION: MR KNEE WITHOU T IV [...] s intact . The anteri or and die maintenance ior crucia te ligame nts appear intact . Horizo ntal tear of the die maintenance ior horn of the medial menisc us [...] soft PAGE 1 Signed Report (FERMIN NUED) [facility] Name: VIRGILIO LINDO en[employer]eta [employer] Phys: Dominique [place] [address] : 1969 Age: 55 Sex: M Acct: [id number] Loc: G.MRI PHONE #: Exam Date: 2024 Status : REG CLI FAX #: [phone] Rad# [id number] Unit# [id number] Admit Date: 2024 EXAMS: CPT CODE: [id number] MRI KNEE RIGHT W/O CONT 41918 tissue contus ion, cellul itis or bursit [...] Techno logist : NANCY ESCUDERO ; GREG MARSHALL Y Transc ribed Date/T brodie: 2024 (1212) Transc riptio nist: DR.HAL Joseph Signat ure Date/T brodie: 2024 (1212) Printe d Date/T brodie: 2024 (1555) BATCH NO: N/A PAGE 2 Signed Report CC'ed Logic: Orderi ng Provid er: ALFREDO SHEPARD Attend ing Provid er: ALFREDO SHEPARD Referr ing Provid er: ALFREDO SHEPARD Consul ting Provid er: MEREDITH MAHER [email or web address] [address], [place], [address], 06/12/2025 14:40:10 06/25/20 25 XR, knee No observ ation record ed. Not Available 2024 13:22:36 Result Notes Documentation Provider Name and Address Organization Details Recorded Time Mri, Knee, W/o Contrast : [facility] Ce Name: VIRGILIO LINDO [address] [place] [address] Phys: [place] [address] : 1970 Age: 55 Sex: M Acct: [id number] Loc: SjMRI PHONE #: Exam Date: 06/12/2025 Status: REG CLI FAX #: Rad# [id number] Unit# [id number] Admit Date: 06/12/2025 EXAMS: CPT CODE: [id number] MRI KNEE RIGHT W/O CONT 28477 EXAMINATION: MR KNEE WITHOUT IV CONTRAST RIGHT [...] superficial soft PAGE 1 Signed Report (CONTINUED) [facility] Ce Name: VIRGILIO LINDO [address] [place] [address] Phys: Kamar Fuentes DO [place] [id number] : 1970 Age: 55 Sex: M Acct: [id number] Loc: G.MRI PHONE #: Exam Date: 06/12/2025 Status: REG CLI FAX #: Rad# [id number] Unit# [id number] Admit Date: 06/12/2025 EXAMS: CPT CODE: [id number] MRI KNEE RIGHT W/O CONT 27091 tissue contusion, cellulitis or bursitis. IMPRESSION: Abnormal examination, with findings as above. Electronically signed by: Hannah Grimes DO 06/12/2025 01:50 PM EDT at 1212 Reported and signed by: HANNAH GRIMES DO CC: Kamar Fuentes DO; Gen Boyce MD Dictated Date/Time: 06/12/2025 (1212) Technologist: NANCY MOY Transcribed Date/Time: 06/12/2025 (1212) Metallurgical Laboratory Assistant: Electronic Signature Date/Time: 06/12/2025 (1212) Printed Date/Time: 06/12/2025 (5585) BATCH NO: N/A PAGE 2 Signed Report CC'ed Logic: Ordering Provider: ALFREDO SHEPARD Attending Provider: ALFREDO SHEPARD Referring Provider: ALFREDO SHEPARD Consulting Provider: MEREDITH [place] null, [place] - [facility] [place] & [place] 06/12/2025 14:40:10 Problems Name Problem SNOMED Code Status Onset Date Resolution Date Notes Provider Name and Address Organization Details Recorded Time Cirrhosis of liver Active 2021 [place], [place] - [facility] [place] & [place] 2 12:40:42 Pyrexia of unknown origin 5010189 Active 2021 [place], [place] - [facility] [place] & [place] 2 12:43:33 Acute otitis externa 79835194 Active 2023 TAISHA Bonner [address] [place] [address],My te [address] [place] [address], [address], [place] - [facility] [place] & [place] 4 14:22:03 Acute otitis externa 76416579 Active 2023 TAISHA Bonner [address] [place] [address],[place] [address], [place], [address], [place] - [facility] [place] & [place] 4 14:22:17 Otalgia of right ear 9187055395 Active 2023 TAISHA Bonner [address] [place] [address] Drive,[place] [address], [place], [address], [place] - [facility] & [place] 4 15:55:49 Sensorineural hearing loss of bilateral ears 057380133 Active 2023 TAISHA Bonner [address] [place] [address],My te [address] [place] [address], [address], [place] - [facility] [place] & [place] 4 15:56:05 Problem Notes None recorded. Procedures Surgical History Date Name Laterality Status Provider Name and Address Organization Details Recorded Time 10/04/19 24 Binocular Microscopic Exam completed TAISHA Bonner [facility],[address], [place], [address], [place] - [facility] & [place] 10/04/2023 15:55:24 09/18/19 22 Cholecystectomy completed Yane Jim [place] - [facility] 07/24/2023 10:32:44 09/18/19 22 Colonoscopy completed Yane Hernán [place] - [facility] & [place] 07/24/2023 10:32:44 Imaging Results None recorded. Procedure Notes None recorded. Medical Equipment None Reported. Allergies No known drug allergies Medications Name Sig Start Date Stop Date Status Note LastModified by Organization Details LastModified Time losartan 50 mg tablet TAKE ONE TABLET BY MOUTH DAILY 07/24 completed Not Available Not Available Not Available furosemide 40 mg tablet TAKE ONE TABLET BY MOUTH EVERY DAY active Not Available Not Available No t Available hydrocodone 5 mg-acetamin ophen 325 mg [...] Not Available Not Available No t Available potassium chloride ER 10 mEq tablet,exte nded release TAKE ONE TABLET BY MOUTH EVERY DAY [...] Not Available Not Available No t Available irbesartan 300 mg tablet TAKE ONE TABLET BY MOUTH [...] Updated DateTime 10/04/2023 182.88 cm 46.8 kg/m2 445514.3 7 g 86 /min 158/91 mm[Hg] [facility] [place] & [place] 10/04/2023 14:05:23 Social History Question Answer Notes LastModified by Stampsy Details LastModified Time Do You Have An Advance Directive? No Information not available 07/24/2023 Are You Blind Or Do You Have Difficulty Seeing? No Information not available 07/24/2023 What Was The Date Of Your Most Recent Tobacco Screening? 07/24/2023 Information not available 07/24/2023 Are You Passively Exposed To Smoke? No Information not available 07/24/2023 Sex: Unknown Functional Status Question Answer Note LastModified by Stampsy Details LastModified Time What is your level [...] influenza, unspecified formulation 4 completed Not Available [facility] 07/18/2025 08:12:11 Influenza, split virus, quadrivalent, preservative 6 completed Not Available [facility] 07/18/2025 08:12:11 COVID-19 vaccine, vector-nr, rS-Ad26, PF, 0.5 mL 1 completed Not Available [facility] 07/18/2025 08:12:11 Influenza, recombinant, quadrivalent, PF 2 completed Not Available [facility] 07/18/2025 08:12:11 Influenza, recombinant, quadrivalent, PF 2 completed Not Available [facility] 07/18/2025 08:12:11 Influenza, split virus, quadrivalent, PF 3 completed Not Available [facility] 07/18/2025 08:12:11 Influenza, split virus, quadrivalent, PF 4 completed Not Available [facility] 07/18/2025 08:12:11 Influenza, split virus, trivalent, PF 5 completed Not Available [facility] 07/18/2025 08:12:11 Past Encounters Encounter ID Performer Location Encounter Start Date Encounter Closed Date Diagnosis/Indication Diagnosis SNOMED-CT Code Diagnosis ICD10 Code Diagnosis IMO Codes Diagnosis Note [id number] DO MARGARITA MANDUJANO [address] [address] 07/24/2023 10:27:53 07/24/2023 11:10:36 Numbness and tingling sensation of skin 4718442274 02 R20.2 Bilateral carpal tunnel syndrome 7492979810 2424943 G56.03 [id number] DO MARGARITA MANDUJANO [address] [address] 08/14/2023 13:59:45 08/14/2023 14:22:51 Bilateral carpal tunnel syndrome 3487977503 6334970 G56.03 Ulnar nerv e entrapment at elbow 896854628 G56.23 Numbness a nd tingling sensation of skin 5271048668 02 R20.2 [id number] TAISHA Bonner [facility] [place] [address] 10/04/2023 13:58:07 10/04/2023 14:24:05 Acute otitis externa 93810191 H60.501 Advised patient to use drops as [...] to follow up. Otalgia of right ear 327 0026047 H92.01 We will ensure this resolves with resolution of OE. Sensorineu ral hearing loss of bilateral ears 105695057 H90.3 Advised patient to hold off on wearing hearing aid in the right ear until follow up visit. [id number] DO MARGARITA [facility]JANO [facility] [place] [address] 03/05/2025 14:24:02 03/05/2025 15:23:49 Pain of knee region 4414789047 M25.561 45296776 Pes anseri nus bursitis of right knee 4548372233 532790 M70.51 88691272 [id number] DO MARGARITA MANDUJANO [facility] [address] [address] 06/25/2025 13:09:05 06/25/2025 13:36:04 Tear of medial meniscus of knee 195066511 S83.241A 70876264 Arthritis of right knee joint 1691170694 537654 M17.11 [id number] DO MARGARITA MANDUJANO [facility] [address] [address] 07/18/2025 08:11:29 07/18/2025 08:27:06 Osteoarthritis of right knee joint 9842838376 11444 M17.11 0639307 Health Concerns Section Related Observation LastModified by Organization Detai ls LastModified Time None Recorded Concern Status LastModified by Organization Details LastModified Time None Recorded Advance Directives Directive N: Payers Insurance Date Sequence Insurance Name Policy Number Policy Prado Covered Member ID Prado Member ID Guarantor Name 07/15/2025 1 [place] [id number] Virgilio Lindo [id number] Virgilio Lindo 07/24/2023 1 [place] [id number] Blank Lindo [id number] Virgilio Lindo Notes Date Note Type Note Provider Name and Address Organization Details Recorded Time 3 text/html ROS as noted in the HPI EMG [id number] bilateral em. 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 2. Moderate to severe sensorimotor axonal and demyelinating neuropathy affecting the left median nerve at or about the wrist. 3. Mild motor primarily demyelinating neuropathies affecting the bilateral ulnar nerves at or about the elbows.[id number] KAMAR FUENTES DO [address], [place], [address], [facility] - NT [facility] & [place] 08/15/2023 08:29:40 4 text/html Patient is here today for evaluation [...] He denies noting any drainage. TAISHA Bonner [address], [place], [address], [place] - [facility] & [place] 10/04/2023 15:58:07 5 text/html ROS as noted in the HPI 55 year old male here today for right knee injury from September 2024, fell onto right knee. He has medial knee pain, really bothers him at night. He cannot walk long distances. He takes ibuprofen as needed. X-rays of right knee taken in office today. KAMAR FUENTES DO [address], [place], [address], [facility] - [facility] & [place] 03/07/2025 13:08:35 5 text/html ROS as noted in the HPI [...] represent superficial soft KAMAR FUENTES DO [address] [facility],[address], [place], [address], [place] - [facility] & [place] 06/27/2025 07:42:01 5 text/html Euflexxa #1 right knee/SP shipped med. no charge J code CHE3 Not Available Not Available Not Available
--- OUTSIDE RECORDS SUMMARY | 2025-07-18 13:58 | XMS_ITS | Patient Health Record ---
Author Organization [facility] Address [address] [place], [place] [address] Support Name Relationship Address Phone Virgilio Gonzalez Guarantor Unknown [phone] Reason For Referral No Information Plan Of Treatment No Information
--- OUTSIDE RECORDS SUMMARY | 2025-07-18 13:58 | XMS_ITS | Clinical Summary ---
Author Organization Healthcare Address [address] [place] [address] Care Team Providers Care Shipping Room Supervisor Name Role Phone Unavailable Primary Care Provider Unavailabl e Encounters Date Type Department Care Team Description 05/08/2025 10:30 AM EDT Office Visit [facility] [address] [place] [address] [place] Casarez Chronic bilateral low back pain with left-sided sciatica (Primary Dx); Right knee pain, unspecified chronicity 05/08/2025 Travel from Last 3 Months Social History [...] [facility]-HIV Screening 1970 [facility]-Hepatitis C Screening 1970 [facility]-Infant/Child/Adol SDOH Screenings 1970 [facility]- SDOH Screenings 01/26/1986 [facility]-Adult SDOH Screenings 01/26/1986 [facility]-DTaP,Tdap,and Td Vaccines (1 - Tdap) 01/26/1987 [facility]-Hepatitis B Vaccines (1 of 3 - 19+ 3-dose series) 01/26/1987 CT Colonography 01/26/2013 Colonoscopy 01/26/2013 FIT-DNA 01/26/2013 FIT 01/26/2013 FOBT 01/26/2013 Sigmoidoscopy 01/26/2013 [facility]-Colorectal Cancer Screening 01/26/2013 [facility]-Pneumococcal Vaccine: 50+ Years (1 of 1 - PCV) 01/26/2018 [facility]-Zoster Vaccines (1 of 2) 01/26/2018 DIV-BGMYL-67 Vaccine (2 - season) 2025 05/12/2021 [facility]-Influenza Vaccine (#1) 05/19/202507/09, [...]
--- OUTSIDE RECORDS SUMMARY | 2025-07-18 13:58 | XMS_ITS | Referral Summary ---
Author Organization [employer] ([place], [place], [place], [place], [place]) Address [address] [place] [address] Care Team Providers Care Door To Door Sales Representative Name Role Phone Gen Boyce MD Primary Care Provider [phone] Allergies No known active allergies Medications losartan-hydroc [...] Date Vijay rded Speak language other than Russian at home Not on file 10/07/2023 Want [...] file Insurance BLUE CROSS/BLUE SHIELD Care Teams Door To Door Sales Representative Relationship Specialty Start Date End Date Gen Boyce MD [address] [place] [address] PCP - General Family Medicine 06/18/22
--- OUTSIDE RECORDS SUMMARY | 2025-07-18 13:58 | XMS_ITS | Continuity of Care Document ---
Author Organization [place] - [facility] - [place] & [place], [facility] Address [address] [facility] [place] [address] Care Team Providers Care Passenger Interline Clerk Name Role Phone DEBORAHGEN Cornell Primary Care Provider Assessment No assessment recorded. Plan of Treatment Reminders Order Date Submit Date Provider Last Modified By Organization Details Last Modified Time Details Appointments INJ ONLY 10 2024 08:15A M KAMAR FUENTES, DO Not available Not available Not available INJ ONLY 15 2024 03:45P Paola FUENTES, DO Not available Not available Not available Lab None recorded. Referral None recorded. Procedures None recorded. Surgeries None recorded. Imaging None recorded. Medication Orders triamcino lone acetonide (PF) 40 mg/mL intraocul ar suspensio n 2024 025 aylin [facility], [address] [place] [address] Dr [place], [place], [id number], 06/25/2025 15:55:24 bupivacai ne HCl 0.5 % (5 mg/mL) injection solution 2024 025 aylin [facility], [address] [place] [address] [place], [place], [id number], 06/25/2025 15:55:24 Patient TargetsNo targets recorded. Patient InstructionsNo instructions recorded. Reason for Referral None Reported. Results Created Date Observation Date Name Description Value Unit Range Abnormal Flag Note LastModifiedBy Organization Detail LastModifiedTime 06/12/2006/12/2025 MRI, knee, w/o contr ast [facility] Name: VIRGILIO LINDO [address] [employer] Phys: Dominique Fuentes [place], [place] [address] : 1969 Age: 55 Sex: M Acct: [id number] Loc: G.MRI PHONE #: [phone] Exam Date: 2024 Status : REG CLI FAX #: [phone] Rad# [id number] Unit# [id number] Admit Date: 2024 EXAMS: CPT CODE: [id number] 448 MRI KNEE RIGHT W/O CONT 95502 EXAMIN ATION: MR KNEE WITHOU T IV [...] s intact . The anteri or and primer supervisor ior crucia te ligame nts appear intact . Horizo ntal tear of the primer supervisor ior horn of the medial menisc us [...] soft PAGE 1 Signed Report (FERMIN NUED) [facility] Name: VIRGILIO LINDO [employer] Phys: Graciela [place]entes [place] [address] : 1969 Age: 55 Sex: M Acct: [id number] Loc: G.MRI PHONE #: Exam Date: 2024 Status : REG CLI FAX #: [phone] Rad# [id number] Unit# [id number] Admit Date: 2024 EXAMS: CPT CODE: [id number] 448 MRI KNEE RIGHT W/O CONT 94771 tissue contus ion, cellul itis or bursit [...] ALFREDO SHEPARD Referr ing Provid er: ALFREDO Elizondo er: DEBORAHTiff MAHER [email or web address] [facility] [address], [place], [address], 06/12/2025 14:40:10 06/25/20 25 XR, knee No observ ation record ed. Not Available 2024 13:22:36 Result Notes None recorded. Problems Name Problem SNOMED Code Status Onset Date Resolution Date Notes Provider Name and Address Organization Details Recorded Time Cirrhosis of liver Active 2021 [place], [place] - [facility] - [place] & [place] 2 12:40:42 Pyrexia of unknown origin 3365490 Active 2021 [place], [place] - [facility] - [place] & [place] 2 12:43:33 Acute otitis externa 69894761 Active 2023 TAISHA Bonner [facility] [employer] [facility],My te [address] [place] [address], [address], [facility] - [facility] & [place] 4 14:22:03 Acute otitis externa 81285616 Active 2023 TAISHA Bonner [facility] [employer] [facility],[address], [place], [address], [place] - [facility] - [place] & [place] 4 14:22:17 Otalgia of right ear 6988426612 Active 2023 TAISHA Bonner [facility] [employer] [facility],My te [address] [place] [address], [address], [place] - [facility] - [place] & [place] 4 15:55:49 Sensorineural hearing loss of bilateral ears 553044378 Active 2023 TAISHA Bonner [facility] [employer] [facility],[address], [place], [address], [place] - [facility] & [place] 4 15:56:05 Problem Notes None recorded. Procedures Surgical History Date Name Laterality Status Provider Name and Address Organization Details Recorded Time 10/04/19 24 Binocular Microscopic Exam completed TAISHA Bonner [address], [place], [address], [facility] & [place] 10/04/2023 15:55:24 09/18/19 22 Cholecystectomy completed Yane Byersis AYSHA [facility] & [place] 07/24/2023 10:32:44 09/18/19 22 Colonoscopy completed [facility] & [place] 07/24/2023 10:32:44 Imaging Results None recorded. Procedure [...] Social History Question Answer Notes LastModified by Tripviat ion Details LastModified Time Do You Have [...] influenza, unspecified formulation 4 completed Not Available [facility] 07/18/2025 08:12:11 Influenza, split virus, quadrivalent, preservative 6 completed Not Available [facility] 07/18/2025 08:12:11 COVID-19 vaccine, vector-nr, rS-Ad26, PF, 0.5 mL 1 completed Not Available [facility] 07/18/2025 08:12:11 Influenza, recombinant, quadrivalent, PF 2 completed Not Available [facility] 07/18/2025 08:12:11 Influenza, recombinant, quadrivalent, PF 2 completed Not Available [facility] 07/18/2025 08:12:11 Influenza, split virus, quadrivalent, PF 3 completed Not Available [facility] 07/18/2025 08:12:11 Influenza, split virus, quadrivalent, PF 4 completed Not Available [facility] 07/18/2025 08:12:11 Influenza, split virus, trivalent, PF 5 completed Not Available [facility] 07/18/2025 08:12:11 Past Encounters Encounter ID Performer Location Encounter Start Date Encounter Closed Date Diagnosis/Indication Diagnosis SNOMED-CT Code Diagnosis ICD10 Code Diagnosis IMO Codes Diagnosis Note [id number] DO MARGARITA MANDUJANO [address] [address] 06/25/2025 13:09:05 06/25/2025 13:36:04 Tear of medial meniscus of knee 598502156 S83.241A 98910880 Arthritis of right knee joint 9562887953 373971 M17.11 302457 Health Concerns Section Related Observation LastModified by Organization Detai ls LastModified Time None Recorded Concern Status LastModified by Organization Details LastModified Time None Recorded Payers Encounter Date Sequence Insurance Name Policy Number Policy Prado Covered Member ID Prado Member ID Guarantor Name 06/25/2025 1 [place] [id number] Virgilio Lindo [id number] Virgilio Lindo Notes Date Note Type [...] represent superficial soft KAMAR FUENTES DO [address] [facility],[address], [place], [address], [place] - [facility] - [place] & [place] 06/27/2025 07:42:01
--- NOTE | 2025-07-18 14:30 | CA_ITS ---
APPROVED REPORT EXAM: Comprehensive 2D, Doppler, and color-flow Echocardiogram Non Destructive Testing Supervisor: Jovanna Garcia RT(R) Ht: 6 ft 0 in Wt: 365lbs BSA: 2.75 BP: 128/70 mmHg Indications: Edema, HTN Echo Enhancing Agent Indication: Endocardial border delineation Agent(s) / Amount(s) Used: Definity 2 cc 2D Dimensions EF AP4 42.00 % GL Strain -8.7 % M-Mode Dimensions RVDd 2.11 cm (0.9-2.6) LA Diam 2.81 cm (1.9-4.0) LVDd 5.00 cm (3.5-5.7) LVDs 3.63 cm (3.5-5.7) IVSd 1.27 cm (0.6-1.1) PWd 1.18 cm (0.6-1.1) EF (Teich) 53.00% FS 27.40% EDV (Teich) 118.20 mL ESV (Teich) 55.50 mL LV Diastology E Decel Time 210 (160-240 msec) E/A Ratio 1.2 Aortic Valve XIAO Index 0.79 cm2/m2 AoV Peak Isidoro. 235.0 (50-130 cm/s) AO Peak GR. 22.00 mmHg AO Mean GR. 10.80 (<5 mmHg) AO VTI 48.5 (18-25 cm) XIAO (VTI) 2.24 (2.5-4.5 cm2) Mitral Valve MV E Max Isidoro. 72.0 (40-130 cm/s) MV A Velocity 58.0 (40-130 cm/s) E/A Ratio 1.23 MV PHT 62.0 ms Left Ventricle The left ventricle is normal size. Left ventricular systolic function is normal. The left ventricular ejection fraction is within the normal range. There is increased left ventricular wall thickness. There is normal LV segmental wall motion. The left ventricular diastolic function is normal. No left ventricle thrombus noted on this study. LVEF is 60%. Right Ventricle The right ventricle is mildly dilated. The right ventricular systolic function is normal. Atria Left atrium is mildly dilated. Right atrium is mildly dilated. There is no color Doppler evidence of interatrial shunt. Aortic Valve The aortic valve is mildly thickened, cannot rule out bicuspid aortic valve. Aortic sclerosis, but with no evidence of hemodynamically significant aortic stenosis. XIAO by continuity equation is 2.1 cm2. Peak velocity 2.3 m/s. Mean AV gradient 10 mmHg. Max AV gradient 20 mmHg. Trace aortic regurgitation is present. Mitral Valve The mitral valve is normal in structure. No evidence of mitral valve stenosis. Mild mitral regurgitation is present. Tricuspid Valve The tricuspid valve leaflets are thin and pliable. Trace tricuspid regurgitation. There is insufficient TR jet to estimate RVSP. Pulmonic Valve The pulmonary valve is grossly normal in structure. Trace pulmonic valve regurgitation is present. Great Vessels The aortic root is normal in size. IVC is normal in size and collapses >50% with inspiration. Pericardium There is no pericardial effusion. Other Information Study Quality: Fair Conclusion Normal biventricular systolic function. Mild RV dilation. Mild biatrial dilation. The aortic valve is mildly thickened, cannot rule out bicuspid aortic valve. Aortic sclerosis, but with no evidence of hemodynamically significant aortic stenosis. XIAO by continuity equation is 2.1 cm2. Peak velocity 2.3 m/s. Mean AV gradient 10 mmHg. Max AV gradient 20 mmHg. Mild MR. Electronically signed by : Larisa Huber MD 07/20/2025 20:51:44
[2025-07-18] MEDS: DEFINITY US ECHO CONTRAST 2ML INJ 2 MG IV (14:51)
== END 2025-07-18 23:59 | disposition home or self-care (01) ==
LOC: RT 13:56
PROVIDERS: PCP Family Medicine; Visit Provider Family Medicine
DX: I08.0 Rheumatic disorders of both mitral and aortic valves (principal); I11.9 Hypertensive heart disease without heart failure; R22.43 Localized swelling, mass and lump, lower limb, bilateral
CPT/HCPCS: 93306; Q9957

== ENCOUNTER 2025-07-21 11:08 | Outpatient (CLI) | payer BC, SELFPAY ==
--- OUTSIDE RECORDS SUMMARY | 2025-07-21 11:12 | XMS_ITS | Referral Summary ---
Author Organization [employer] ([place], [place], [place], [place], [place]) Address [address] [place] [address] Care Team Providers Care Vocational Horticulture Instructor Name Role Phone Gen Boyce MD Primary Care Provider [phone] Allergies No known active allergies Medications losartan-hydroc [...] Date Vijay rded Speak language other than Martiniquais at home Not on file 10/07/2023 Want [...] file Insurance BLUE CROSS/BLUE SHIELD Care Teams Vocational Horticulture Instructor Relationship Specialty Start Date End Date Gen Boyce MD [address] [place] [address] PCP - General Family Medicine 06/18/22
--- OUTSIDE RECORDS SUMMARY | 2025-07-21 11:12 | XMS_ITS | Encounter Summary ---
Author Organization [facility] Address [address] [place] [address] Care Team Providers Care Biometrics Instructor Name Role Phone Unavailable Primary Care Provider Unavailabl e Reason for Referral * Consultation (Routine) - Authorized Specialty Diagnoses / Procedures Referred By Contac t Referred To Contact Integrative Medicine Diagnoses Numbness Paresthesia Bilateral low back pain, unspecified chronicity, unspecified whether sciatica present Gen Boyce MD Phone: tel: fax: Referral ID Status Reason Start Date Expiration Date Visits Requested Visits Authorized [id number] Authorized Specialty Services Required 02/06/2024 08/07/2025 1 1 Encounter Details Date Type Department Care Team (Late st Contact Info) Description 02/06/2024 [facility] [address] [place] [phone] Gen Boyce MD [address] [place] [address] Numbness (Primary Dx); Paresthesia; Bilateral low back [...]
--- OUTSIDE RECORDS SUMMARY | 2025-07-21 11:12 | XMS_ITS | Clinical Summary ---
Author Organization [employer] ([place], [place], [place], [place], [place]) Address [address] [place] [address] Care Team Providers Care Wildlife Management Professor Name Role Phone Gen Boyce MD Primary Care Provider [phone] Allergies No known active allergies Medications losartan-hydroc [...] Date Vijay rded Speak language other than Monegasque at home Not on file 10/07/2023 Want [...] 2025 Insurance BLUE CROSS/BLUE SHIELD Care Teams Wildlife Management Professor Relationship Specialty Start Date End Date Gen Boyce MD [address] [place] [address] PCP - General Family Medicine 06/18/22
--- OUTSIDE RECORDS SUMMARY | 2025-07-21 11:12 | XMS_ITS | Clinical Summary ---
Author Organization [facility] Address [address] [place] [address] Care Team Providers Care Rhia Name Role Phone Unavailable Primary Care Provider Unavailabl e Encounters Date Type Department Care Team Description 05/08/2025 10:30 AM EDT Office Visit [facility] [address] [place] [address] [place] Casarez Chronic bilateral low back pain [...] 01/26/2018 [facility]-Zoster Vaccines (1 of 2) 01/26/2018 [id number] Vaccine (2 - season) 2025 05/12/2021 [facility]-Influenza [...]
[2025-07-21 12:26] LABS: Anion Gap 12.2 mEq/L (5-15); Blood Urea Nitrogen 10 mg/dl (9-20); Calcium 9.1 mg/dl (8.4-10.2); Carbon Dioxide 26 mmol/L (22.0-30.0); Chloride 100 mmol/L (98-107); Creatinine,Serum 1.00 mg/dl (0.66-1.25); Estimated Glomerular Filt Rate 77 ml/min (>60); GFR (African American) 93 ML/MIN (>60); Glucose 102 mg/dl (74-100); Potassium 4.2 mmoL/L (3.5-5.1); Sodium 134 mmol/L (136-145)
[2025-07-21 13:20] LABS: NT Pro Brain Natriuretic Pep. 21.1 pg/mL (0-125)
== END 2025-07-21 23:59 | disposition home or self-care (01) ==
PROVIDERS: PCP Family Medicine; Visit Provider Nurse Practitioner Family
DX: I50.33 Acute on chronic diastolic (congestive) heart failure (principal); R20.0 Anesthesia of skin; R20.2 Paresthesia of skin; G47.30 Sleep apnea, unspecified
CPT/HCPCS: 36415; 80048; 83880

== ENCOUNTER 2025-08-05 14:00 | Outpatient (CLI) | payer BC, SELFPAY ==
[2025-08-05 18:43] LABS: Lyme Ab IgM CIA ND
[2025-08-05 19:15] LABS: Hematocrit 40.7 % (42.0-52.0); Hemoglobin 13.6 g/dL (14.1-18.0); Immature Granulocytes % 0.5 %; Mean Corpuscular HGB Conc 33.4 g/dL (31.8-35.4); Mean Corpuscular Hemoglobin 29.1 pg (27.0-31.2); Mean Corpuscular Volume 87.0 fl (80-94); Nucleated Red Blood Cells % 0 %; Platelet Count 244 K/mm3 (142-424); Red Blood Count 4.68 M/mm3 (4.60-6.20); Red Cell Distribution Width-SD 39.6 fL; White Blood Count 10.9 K/mm3 (4.8-10.8)
--- OUTSIDE RECORDS SUMMARY | 2025-08-06 12:18 | XMS_ITS | Patient Health Record ---
Author Organization [facility] Address [address] [place], [place] [id number] Support Name Relationship Address Phone Virgilio Gonzalez Guarantor Unknown [phone] Reason For Referral No Information Plan Of Treatment No Information
--- OUTSIDE RECORDS SUMMARY | 2025-08-06 12:18 | XMS_ITS | Clinical Summary ---
Author Organization [facility] Address [address] [place] [address] Care Team Providers Care Knife Changer Name Role Phone Unavailable Primary Care Provider Unavailabl e Encounters Date Type Department Care Team Description 05/08/2025 10:30 AM EDT Office Visit [facility] [address] [place] [address] [place] Casarez Chronic bilateral low back pain [...] 01/26/2018 [facility]-Zoster Vaccines (1 of 2) 01/26/2018 [id number] Vaccine (2 - season) 2025 05/12/2021 [facility]-Influenza [...]
--- OUTSIDE RECORDS SUMMARY | 2025-08-06 12:19 | XMS_ITS | Patient Health Record ---
[facility] Address [address] [place] [id number] Support Name Relationship Address Phone Virgilio Gonzalez Guarantor Unknown [phone] Reason For Referral No Information Medications Medication [...] Insured Coverage Start Date Coverage End Date [facility] [address] [place] [address] [id number] Virgilio Gonzalez Self - patient is the insured Medical (General) History Medical History History ICD Code hyperlipidemia Gout allergies
--- OUTSIDE RECORDS SUMMARY | 2025-08-06 12:19 | XMS_ITS | Referral Summary ---
Author Organization [employer] ([place], [place], [place], [place], [place]) Address [address] [place] [address] Care Team Providers Care Illuminating Engineer Name Role Phone Gen Boyce MD Primary Care Provider [phone] Allergies No known active allergies Medications losartan-hydroc [...] Date Vijay rded Speak language other than Azeri at home Not on file 10/07/2023 Want [...] file Insurance BLUE CROSS/BLUE SHIELD Care Teams Illuminating Engineer Relationship Specialty Start Date End Date Gen Boyce MD [address] [place] [address] PCP - General Family Medicine 06/18/22
--- OUTSIDE RECORDS SUMMARY | 2025-08-06 12:19 | XMS_ITS | Encounter Summary ---
Author Organization [facility] Address [address] [place] [address] Care Team Providers Care Horse Exerciser Name Role Phone Unavailable Primary Care Provider Unavailabl e Reason for Referral * Consultation (Routine) - Authorized Specialty Diagnoses / Procedures Referred By Contac t Referred To Contact Integrative Medicine Diagnoses Numbness Paresthesia Bilateral low back pain, unspecified chronicity, unspecified whether sciatica present Gen Boyce MD Phone: tel: fax: Referral ID Status Reason Start Date Expiration Date Visits Requested Visits Authorized [id number] Authorized Specialty Services Required 02/06/2024 08/07/2025 1 1 Encounter Details Date Type Department Care Team (Late st Contact Info) Description 02/06/2024 [facility] [address] [place] [phone] Gen Boyce MD [address] [place] [address] Numbness (Primary Dx); Paresthesia; Bilateral low back [...]
--- OUTSIDE RECORDS SUMMARY | 2025-08-06 12:19 | XMS_ITS | Clinical Summary ---
Author Organization [employer] ([place], [place], [place], [place], [place]) Address [address] [place] [address] Care Team Providers Care Celery Cutter Name Role Phone Gen Boyce MD Primary Care Provider [phone] Allergies No known active allergies Medications losartan-hydroc [...] Date Vijay rded Speak language other than Bengali at home Not on file 10/07/2023 Want [...] file Insurance BLUE CROSS/BLUE SHIELD Care Teams Celery Cutter Relationship Specialty Start Date End Date Gen Boyce MD [address] [place] [address] PCP - General Family Medicine 06/18/22
[2025-08-07 14:17] LABS: Lyme Ab CIA Negative (Negative)
== END 2025-08-05 23:59 | disposition home or self-care (01) ==
LOC: LAB.DROPOF 08-06 10:57
PROVIDERS: PCP Family Medicine; Visit Provider Family Medicine
DX: E66.01 Morbid (severe) obesity due to excess calories (principal); T14.8XXA Other injury of unspecified body region, initial encounter; Z68.42 Body mass index [BMI] 45.0-49.9, adult; W57.XXXA Bitten or stung by nonvenomous insect and other nonvenomous arthropods, initial encounter
CPT/HCPCS: 85025; 86618